=== PATIENT | male | born 1955 | race Caucasian/White ===

== ENCOUNTER → 2016-11-03 | Outpatient (CLI) | payer OTHER ==
[~2016-11-03] MED LIST: ATARAX PO; ATOR20TA PO; DIGO0.2566 PO; ESCI20TA PO; METO25TA62 PO; NOR7.5T PO; PROVENTIL; WARF5TAB PO
[2016-11-03 08:15] LABS: Urine Bilirubin Negative (Negative); Urine Color Yellow (Yellow); Urine Glucose Normal (Normal); Urine Ketone Negative (Negative); Urine Nitrite Negative (Negative); Urine RBC 1 /hpf (0 - 3); Urine Urobilinogen Normal (Negative); Urine pH 5.5 (5.0-8.0)
[2016-11-03 08:28] LABS: Albumin 3.8 g/dL (3.4-5.0); Bilirubin, Total 0.5 mg/dL (0.2-1.0); Calcium 8.7 mg/dL (8.5-10.1); Total Protein 7.7 g/dL (6.4-8.2)
[2016-11-03 08:32] LABS: Urine Blood 1+ /uL (Negative)
[2016-11-03 08:33] LABS: Basophils # (auto) 0.1 uL; Basophils % (auto) 1.7 % (0.0-2.0); Eosinophils # (auto) 0.4 uL; Eosinophils % (auto) 4.4 % (0.0-7.0); Hematocrit 50.5 % (41.0-53.0); Lymphocytes # (auto) 2.1 uL; Lymphocytes % (auto) 24.7 % (10.0-50.0); Mean Corpuscular Hemoglobin 30.4 pg (28.0-32.0); Mean Corpuscular Hgb Conc. 31.6 g/dL (32.0-36.0); Mean Corpuscular Volume 96.2 fL (80.0-100.0); Mean Platelet Volume 7.2 fL (7.4-10.4); Monocytes # (auto) 0.6 uL; Monocytes % (auto) 6.8 % (0.0-12.0); Neutrophils # (auto) 5.2 uL; Neutrophils % (auto) 62.4 % (37.0-80.0); Platelet Count (auto) 364 10^3/uL (140-450); Red Cell Distribution Width 14.1 % (11.6-16.0); White Blood Cell 8.3 10^3/uL (4.4-10.8)
== END | disposition home or self-care (01) ==
LOC: LAB 06:51
PROVIDERS: ATTEND Internal Medicine
DX: I10 Essential (primary) hypertension (principal); J45.909 Unspecified asthma, uncomplicated; M54.5 Low back pain
CPT/HCPCS: 36415; 80053; 80061; 81001; 84443; 85025; 85652; 86200; 86803

== ENCOUNTER → 2017-04-17 | Outpatient (CLI) | payer OTHER ==
[~2017-04-17] MED LIST changes: +ALBUTEROL SULF 2.5 MG/0.5ML(0.5%) NEB SOLN ONE
== END | disposition home or self-care (01) ==
LOC: PF 07:52
PROVIDERS: ATTEND Internal Medicine
DX: J44.9 Chronic obstructive pulmonary disease, unspecified (principal)
CPT/HCPCS: 94060; 94640

== ENCOUNTER → 2017-06-05 | Outpatient (CLI) | payer OTHER ==
[~2017-06-05] MED LIST changes: -ALBUTEROL SULF 2.5 MG/0.5ML(0.5%) NEB SOLN ONE
== END | disposition home or self-care (01) ==
LOC: LAB 09:15
PROVIDERS: ATTEND Internal Medicine
DX: R05 Cough (principal)
CPT/HCPCS: 87070; 87205

== ENCOUNTER → 2017-10-27 | Outpatient (CLI) | payer OTHER ==
[2017-10-27 09:03] LABS: Basophils # (auto) 0.1 uL; Basophils % (auto) 0.7 % (0.0-2.0); Eosinophils # (auto) 0.3 uL; Eosinophils % (auto) 3.4 % (0.0-7.0); Hematocrit 50.1 % (41.0-53.0); Hemoglobin 16.4 g/dL (13.5-17.5); Lymphocytes # (auto) 1.7 uL; Lymphocytes % (auto) 19.3 % (10.0-50.0); Mean Corpuscular Hemoglobin 31.7 pg (28.0-32.0); Mean Corpuscular Hgb Conc. 32.7 g/dL (32.0-36.0); Mean Corpuscular Volume 97.1 fL (80.0-100.0); Monocytes # (auto) 0.8 uL; Monocytes % (auto) 8.8 % (0.0-12.0); Neutrophils # (auto) 6.1 uL; Neutrophils % (auto) 67.8 % (37.0-80.0); Platelet Count (auto) 335 10^3/uL (140-450); Red Blood Cells 5.16 10^6/uL (4.5-5.90); Red Cell Distribution Width 14.7 % (11.8-14.3)
[2017-10-27 10:25] LABS: Albumin 3.8 g/dL (3.4-5.0); BUN/Creatinine Ratio 22.7; Bilirubin, Total 0.6 mg/dL (0.2-1.0); Calcium 9.1 mg/dL (8.5-10.1); Potassium 4.4 mmol/L (3.5-5.1)
== END | disposition home or self-care (01) ==
LOC: LAB 08:28
PROVIDERS: ATTEND Physician Assistant
DX: I10 Essential (primary) hypertension (principal); J44.9 Chronic obstructive pulmonary disease, unspecified; M19.90 Unspecified osteoarthritis, unspecified site; M05.741 Rheumatoid arthritis with rheumatoid factor of right hand without organ or systems involvement; Z86.79 Personal history of other diseases of the circulatory system
CPT/HCPCS: 36415; 80053; 80061; 85025

== ENCOUNTER → 2018-12-09 | Outpatient (CLI) | payer OTHER | END | disposition home or self-care (01) | LOC: XYW 08:27 | PROVIDERS: ATTEND Internal Medicine Cardiovascular Disease | DX: I48.0 Paroxysmal atrial fibrillation (principal); I10 Essential (primary) hypertension | CPT/HCPCS: 93306 ==

== ENCOUNTER 2018-12-16 07:07 | Emergency (ER) | payer OTHER ==
[~2018-12-16] VITALS: Ht 188 cm; Wt 75.7 kg
[2018-12-16] MEDS ORDERED: NITROGLYCERIN 0.4 MG SL TAB SL ONE (07:30)
[2018-12-16] MEDS ORDERED: ASPirin 81 mg TAB PO ONE (07:30)
[2018-12-16 07:44] LABS: Basophils # (auto) 0.1 uL; Basophils % (auto) 1.1 % (0.0-2.0); Eosinophils # (auto) 0.3 uL; Eosinophils % (auto) 3.5 % (0.0-7.0); Hematocrit 50.1 % (41.0-53.0); Hemoglobin 17.1 g/dL (13.5-17.5); Lymphocytes # (auto) 1.9 uL; Lymphocytes % (auto) 25.8 % (10.0-50.0); Mean Corpuscular Hemoglobin 31.9 pg (28.0-32.0); Mean Corpuscular Hgb Conc. 34.1 g/dL (32.0-36.0); Mean Corpuscular Volume 93.7 fL (80.0-100.0); Monocytes # (auto) 0.5 uL; Monocytes % (auto) 6.9 % (0.0-12.0); Neutrophils # (auto) 4.6 uL; Neutrophils % (auto) 62.7 % (37.0-80.0); Nucleated Red Blood Cells % 0.1 %; Platelet Count (auto) 323 10^3/uL (140-450); Red Blood Cells 5.35 10^6/uL (4.5-5.90); Red Cell Distribution Width 13.7 % (11.8-14.3); White Blood Cell 7.4 10^3/uL (4.4-10.8)
[2018-12-16 07:59] LABS: INR 0.93 (0.9-1.15)
[2018-12-16 08:04] LABS: Alanine Aminotransferase 12 U/L (16-61); Albumin 3.9 g/dL (3.4-5.0); Anion Gap 4 (5-15); Aspartate Aminotransferase 22 U/L (15-37); BUN/Creatinine Ratio 26.4; Blood Urea Nitrogen 24 mg/dL (7-18); Calcium 8.7 mg/dL (8.5-10.1); Carbon Dioxide 28 mmol/L (21-32); Chloride 106 mmol/L (98-107); GFR African American 108 mL/min; GFR Non-African American 89 mL/min; Glucose 95 mg/dL (74-106); Magnesium 2.3 mg/dL (1.6-2.6); Potassium 4.2 mmol/L (3.5-5.1); Sodium 138 mmol/L (136-145)
[2018-12-16 08:09] LABS: Alkaline Phosphatase 107 U/L (45-117); Bilirubin, Total 0.5 mg/dL (0.2-1.0); Total Protein 8.4 g/dL (6.4-8.2)
[2018-12-16 11:37] VITALS: BP 107/69
[2018-12-16 11:37] LABS: Urine Bacteria NONE SEEN /hpf (None Seen); Urine Blood TRACE /uL (Negative); Urine Mucus FEW (None Seen); Urine Specific Gravity 1.022 (1.001-1.035); Urine WBC <1 /hpf (0 - 3)
== END 2018-12-16 12:04 | disposition home or self-care (01) ==
LOC: ER 07:07
DX: R07.89 Other chest pain (principal); E78.5 Hyperlipidemia, unspecified; I10 Essential (primary) hypertension; J45.909 Unspecified asthma, uncomplicated; F17.210 Nicotine dependence, cigarettes, uncomplicated; F12.10 Cannabis abuse, uncomplicated; Z88.0 Allergy status to penicillin; Z88.5 Allergy status to narcotic agent
CPT/HCPCS: 36415; 71046; 80053; 81001; 83735; 83880; 84443; 84484; 85025; 85610; 85730; 93005

== ENCOUNTER → 2019-08-16 | Outpatient (CLI) | payer OTHER ==
[2019-08-16 11:08] LABS: Basophils # (auto) 0 uL; Basophils % (auto) 0.6 % (0.0-2.0); Eosinophils # (auto) 0.3 uL; Eosinophils % (auto) 4.1 % (0.0-7.0); Hematocrit 42.7 % (41.0-53.0); Hemoglobin 14.1 g/dL (13.5-17.5); Lymphocytes # (auto) 1.5 uL; Mean Corpuscular Hemoglobin 31.5 pg (28.0-32.0); Mean Corpuscular Hgb Conc. 32.9 g/dL (32.0-36.0); Mean Corpuscular Volume 95.6 fL (80.0-100.0); Monocytes # (auto) 0.6 uL; Monocytes % (auto) 8.7 % (0.0-12.0); Neutrophils # (auto) 4.1 uL; Neutrophils % (auto) 63.6 % (37.0-80.0); Platelet Count (auto) 257 10^3/uL (140-450); Red Blood Cells 4.46 10^6/uL (4.5-5.90); Red Cell Distribution Width 14.1 % (11.8-14.3); White Blood Cell 6.4 10^3/uL (4.4-10.8)
[2019-08-16 11:57] LABS: Albumin 3.5 g/dL (3.4-5.0); Calcium 8.8 mg/dL (8.5-10.1); Potassium 3.9 mmol/L (3.5-5.1)
[2019-08-16 12:03] LABS: BUN/Creatinine Ratio 27.1; Bilirubin, Total 0.8 mg/dL (0.2-1.0); Total Protein 6.8 g/dL (6.4-8.2)
== END | disposition home or self-care (01) ==
LOC: LAB 10:52
PROVIDERS: ATTEND Physician Assistant
DX: Z00.00 Encounter for general adult medical examination without abnormal findings (principal); Z12.5 Encounter for screening for malignant neoplasm of prostate; I10 Essential (primary) hypertension; J44.9 Chronic obstructive pulmonary disease, unspecified; I48.20 Chronic atrial fibrillation, unspecified; N52.9 Male erectile dysfunction, unspecified; F17.210 Nicotine dependence, cigarettes, uncomplicated; E78.5 Hyperlipidemia, unspecified; Z98.890 Other specified postprocedural states
CPT/HCPCS: 36415; 80053; 80061; 84153; 84403; 85025

== ENCOUNTER → 2019-09-08 | Outpatient (CLI) | payer OTHER ==
[~2019-09-08] VITALS: Ht 188 cm; Wt 76.7 kg
[~2019-09-08] MED LIST changes: +ADENOSINE 64 MG in GIVE UN-DILUTED 0 ML IV STA; -METO25TA62 PO; +METO25TA93 PO
== END | disposition home or self-care (01) ==
LOC: XY 08:54
PROVIDERS: ATTEND Internal Medicine
DX: I48.91 Unspecified atrial fibrillation (principal); I10 Essential (primary) hypertension; R07.9 Chest pain, unspecified
CPT/HCPCS: 78452; 93017; A9500; J0153

== ENCOUNTER → 2020-08-13 | Outpatient (CLI) | payer OTHER ==
[~2020-08-13] MED LIST changes: -ADENOSINE 64 MG in GIVE UN-DILUTED 0 ML IV STA
[2020-08-13 08:59] LABS: Basophils # (auto) 0.1 10 ^3/uL (0-0.2); Basophils % (auto) 0.6 % (0.0-2.0); Eosinophils # (auto) 0.2 10 ^3/uL (0-0.8); Eosinophils % (auto) 2.2 % (0.0-7.0); Hematocrit 50.3 % (41.0-53.0); Hemoglobin 16.5 g/dL (13.5-17.5); Lymphocytes # (auto) 1.3 10 ^3/uL (0.4-5.4); Lymphocytes % (auto) 13.4 % (10.0-50.0); Mean Corpuscular Hemoglobin 31.3 pg (28.0-32.0); Mean Corpuscular Hgb Conc. 32.8 g/dL (32.0-36.0); Mean Corpuscular Volume 95.5 fL (80.0-100.0); Monocytes # (auto) 0.6 10 ^3/uL (0-1.3); Monocytes % (auto) 6.2 % (0.0-12.0); Neutrophils # (auto) 7.6 10 ^3/uL (1.6-8.6); Neutrophils % (auto) 77.6 % (37.0-80.0); Platelet Count (auto) 332 10^3/uL (140-450); Red Blood Cells 5.27 10^6/uL (4.5-5.90); Red Cell Distribution Width 13.8 % (11.8-14.3); White Blood Cell 9.7 10^3/uL (4.4-10.8)
[2020-08-13 10:14] LABS: Albumin 3.7 g/dL (3.4-5.0); Calcium 9.3 mg/dL (8.5-10.1); Potassium 3.8 mmol/L (3.5-5.1)
[2020-08-13 10:21] LABS: BUN/Creatinine Ratio 23.5; Bilirubin, Total 0.6 mg/dL (0.2-1.0); Total Protein 7.8 g/dL (6.4-8.2)
== END | disposition home or self-care (01) ==
LOC: LAB 08:43
PROVIDERS: ATTEND Physician Assistant
DX: I10 Essential (primary) hypertension (principal); I48.20 Chronic atrial fibrillation, unspecified; R35.1 Nocturia; J44.9 Chronic obstructive pulmonary disease, unspecified; F17.200 Nicotine dependence, unspecified, uncomplicated; M05.749 Rheumatoid arthritis with rheumatoid factor of unspecified hand without organ or systems involvement
CPT/HCPCS: 36415; 80053; 80061; 84153; 85025

== ENCOUNTER 2020-09-18 15:51 | Emergency (ER) | payer OTHER ==
[~2020-09-18] VITALS: Ht 188 cm; Wt 73.5 kg
[2020-09-18 16:17] VITALS: BP 131/78
== END 2020-09-18 18:33 | disposition home or self-care (01) ==
LOC: ER 15:51
DX: U07.1 COVID-19 (principal); J18.9 Pneumonia, unspecified organism
CPT/HCPCS: 36415; 71045; 87426

== ENCOUNTER 2021-01-30 10:56 | Emergency (ER) | payer OTHER ==
[~2021-01-30] VITALS: Ht 188 cm; Wt 76.2 kg
[2021-01-30 11:31] LABS: Basophils # (auto) 0 10 ^3/uL (0-0.2); Basophils % (auto) 0.5 % (0.0-2.0); Eosinophils # (auto) 0.1 10 ^3/uL (0-0.8); Eosinophils % (auto) 1.5 % (0.0-7.0); Hematocrit 50.6 % (41.0-53.0); Hemoglobin 16.8 g/dL (13.5-17.5); Lymphocytes # (auto) 1.7 10 ^3/uL (0.4-5.4); Lymphocytes % (auto) 19.3 % (10.0-50.0); Mean Corpuscular Hemoglobin 31.6 pg (28.0-32.0); Mean Corpuscular Hgb Conc. 33.2 g/dL (32.0-36.0); Mean Corpuscular Volume 95.2 fL (80.0-100.0); Monocytes # (auto) 0.5 10 ^3/uL (0-1.3); Monocytes % (auto) 5.8 % (0.0-12.0); Neutrophils # (auto) 6.6 10 ^3/uL (1.6-8.6); Neutrophils % (auto) 72.9 % (37.0-80.0); Nucleated Red Blood Cells % 0.1 %; Platelet Count (auto) 328 10^3/uL (140-450); Red Blood Cells 5.31 10^6/uL (4.5-5.90); Red Cell Distribution Width 13.8 % (11.8-14.3)
[2021-01-30 11:52] LABS: Albumin 3.8 g/dL (3.4-5.0); Anion Gap 6 (5-15); Blood Urea Nitrogen 24 mg/dL (7-18); Carbon Dioxide 27 mmol/L (21-32); Chloride 106 mmol/L (98-107); Glucose 103 mg/dL (74-106); Lipase 79 U/L (73-393); Potassium 4.3 mmol/L (3.5-5.1); Sodium 139 mmol/L (136-145)
[2021-01-30 11:57] LABS: Alanine Aminotransferase 10 U/L (16-61); Alkaline Phosphatase 102 U/L (45-117); Aspartate Aminotransferase 16 U/L (15-37); Bilirubin, Total 0.5 mg/dL (0.2-1.0); GFR African American 134 mL/min; GFR Non-African American 111 mL/min; Total Protein 8.1 g/dL (6.4-8.2)
[2021-01-30 14:26] LABS: Urine Bacteria NONE SEEN /hpf (None Seen); Urine Blood 1+ /uL (Negative); Urine Mucus FEW (None Seen); Urine Specific Gravity 1.022 (1.001-1.035); Urine WBC 1 /hpf (0 - 3)
[2021-01-30 14:57] LABS: INR 1.02 (0.9-1.15); Partial Thromboplastin Time 28.2 sec (23.0-31.2)
[2021-01-30] MEDS ORDERED: cefTRIAXone 1GM/50ML D5W 50 ML IV ONE (15:30)
[2021-01-30] MEDS: ONDANSETRON HCL 4 MG/2 ML VIAL IV ONE ×2 (15:45→15:53)
[2021-01-30 17:07] VITALS: BP 115/77
== END 2021-01-30 17:59 | disposition home or self-care (01) ==
LOC: ER 10:56
DX: J42 Unspecified chronic bronchitis (principal); K57.90 Diverticulosis of intestine, part unspecified, without perforation or abscess without bleeding; Z20.822 Contact with and (suspected) exposure to COVID-19
CPT/HCPCS: 36415; 71045; 74176; 80053; 81001; 83690; 83735; 84484; 85025; 85610; 85730; 87426; 93005; 96365; 99285; J0696; J2405

== ENCOUNTER → 2021-03-11 | Outpatient (CLI) | payer OTHER ==
[2021-03-11 10:22] LABS: Basophils # (auto) 0.1 10 ^3/uL (0-0.2); Basophils % (auto) 0.9 % (0.0-2.0); Eosinophils # (auto) 0.2 10 ^3/uL (0-0.8); Eosinophils % (auto) 3.1 % (0.0-7.0); Hematocrit 42.9 % (41.0-53.0); Hemoglobin 14.8 g/dL (13.5-17.5); Lymphocytes # (auto) 1.5 10 ^3/uL (0.4-5.4); Mean Corpuscular Hemoglobin 32.3 pg (28.0-32.0); Mean Corpuscular Hgb Conc. 34.5 g/dL (32.0-36.0); Mean Corpuscular Volume 93.6 fL (80.0-100.0); Monocytes # (auto) 0.5 10 ^3/uL (0-1.3); Monocytes % (auto) 6.8 % (0.0-12.0); Neutrophils # (auto) 4.9 10 ^3/uL (1.6-8.6); Neutrophils % (auto) 68.2 % (37.0-80.0); Platelet Count (auto) 282 10^3/uL (140-450); Red Blood Cells 4.58 10^6/uL (4.5-5.90); Red Cell Distribution Width 14.1 % (11.8-14.3); White Blood Cell 7.1 10^3/uL (4.4-10.8)
[2021-03-11 10:50] LABS: Potassium 4.3 mmol/L (3.5-5.1)
[2021-03-11 11:02] LABS: Albumin 3.4 g/dL (3.4-5.0); BUN/Creatinine Ratio 32.3; Bilirubin, Total 0.4 mg/dL (0.2-1.0); Calcium 8.7 mg/dL (8.5-10.1)
== END | disposition home or self-care (01) ==
LOC: LAB 10:03
PROVIDERS: ATTEND Nurse Practitioner Family
DX: I10 Essential (primary) hypertension (principal); J44.9 Chronic obstructive pulmonary disease, unspecified; I48.20 Chronic atrial fibrillation, unspecified; I70.0 Atherosclerosis of aorta; R35.1 Nocturia
CPT/HCPCS: 36415; 80053; 80061; 84153; 85025

== ENCOUNTER → 2022-05-20 | Outpatient (CLI) | payer OTHER ==
[2022-05-20 10:33] LABS: Basophils # (auto) 0.1 10 ^3/uL (0-0.2); Basophils % (auto) 1.1 % (0.0-2.0); Eosinophils # (auto) 0.3 10 ^3/uL (0-0.8); Hematocrit 44.2 % (41.0-53.0); Hemoglobin 14.4 g/dL (13.5-17.5); Lymphocytes # (auto) 1.7 10 ^3/uL (0.4-5.4); Lymphocytes % (auto) 25.5 % (10.0-50.0); Mean Corpuscular Hemoglobin 30.3 pg (28.0-32.0); Mean Corpuscular Hgb Conc. 32.6 g/dL (32.0-36.0); Mean Corpuscular Volume 92.8 fL (80.0-100.0); Monocytes # (auto) 0.4 10 ^3/uL (0-1.3); Monocytes % (auto) 6.3 % (0.0-12.0); Neutrophils % (auto) 62.1 % (37.0-80.0); Red Blood Cells 4.76 10^6/uL (4.5-5.90); Red Cell Distribution Width 14.3 % (11.8-14.3); White Blood Cell 6.5 10^3/uL (4.4-10.8)
[2022-05-20 10:57] LABS: Calcium 8.8 mg/dL (8.5-10.1); Potassium 4.6 mmol/L (3.5-5.1)
[2022-05-20 11:03] LABS: BUN/Creatinine Ratio 21.9; Bilirubin, Total 0.3 mg/dL (0.2-1.0); Total Protein 6.6 g/dL (6.4-8.2)
== END | disposition home or self-care (01) ==
LOC: LAB 09:53
PROVIDERS: ATTEND Nurse Practitioner Family
DX: M05.741 Rheumatoid arthritis with rheumatoid factor of right hand without organ or systems involvement (principal); R35.1 Nocturia; E78.5 Hyperlipidemia, unspecified; I10 Essential (primary) hypertension; I48.0 Paroxysmal atrial fibrillation
CPT/HCPCS: 36415; 80053; 80061; 84153; 85025; 86431

== ENCOUNTER → 2022-08-13 | Outpatient (CLI) | payer OTHER ==
[2022-08-13 14:47] LABS: Basophils # (auto) 0.1 10 ^3/uL (0-0.2); Basophils % (auto) 0.8 % (0.0-2.0); Eosinophils # (auto) 0.2 10 ^3/uL (0-0.8); Eosinophils % (auto) 2.4 % (0.0-7.0); Hematocrit 46.3 % (41.0-53.0); Hemoglobin 15.2 g/dL (13.5-17.5); Lymphocytes # (auto) 2.5 10 ^3/uL (0.4-5.4); Lymphocytes % (auto) 29.9 % (10.0-50.0); Mean Corpuscular Hemoglobin 30.6 pg (28.0-32.0); Mean Corpuscular Hgb Conc. 32.9 g/dL (32.0-36.0); Monocytes # (auto) 0.6 10 ^3/uL (0-1.3); Monocytes % (auto) 7.4 % (0.0-12.0); Neutrophils % (auto) 59.5 % (37.0-80.0); Red Blood Cells 4.98 10^6/uL (4.5-5.90); Red Cell Distribution Width 13.8 % (11.8-14.3); White Blood Cell 8.4 10^3/uL (4.4-10.8)
[2022-08-13 15:15] LABS: Albumin 3.5 g/dL (3.4-5.0); Calcium 8.6 mg/dL (8.5-10.1); Potassium 3.9 mmol/L (3.5-5.1)
[2022-08-13 15:18] LABS: BUN/Creatinine Ratio 31.9; Bilirubin, Total 0.5 mg/dL (0.2-1.0); CRP High Sensitivity 0.17 mg/dL (< 0.3); Total Protein 7.4 g/dL (6.4-8.2)
== END | disposition home or self-care (01) ==
LOC: LAB 13:45
PROVIDERS: ATTEND Internal Medicine Rheumatology
DX: M05.79 Rheumatoid arthritis with rheumatoid factor of multiple sites without organ or systems involvement (principal); R53.83 Other fatigue; Z79.899 Other long term (current) drug therapy
CPT/HCPCS: 36415; 80053; 85025; 85652; 86141; 86704

== ENCOUNTER → 2022-08-19 | Outpatient (CLI) | payer OTHER ==
[2022-08-19 09:23] LABS: Albumin 3.5 g/dL (3.4-5.0); Bilirubin, Direct 0.1 mg/dL (0-0.2); Bilirubin, Total 0.6 mg/dL (0.2-1.0); Total Protein 7.1 g/dL (6.4-8.2)
== END | disposition home or self-care (01) ==
LOC: LAB 08:13
PROVIDERS: ATTEND Podiatrist
DX: B35.1 Tinea unguium (principal)
CPT/HCPCS: 36415; 80076

== ENCOUNTER → 2023-01-21 | Outpatient (CLI) | payer OTHER ==
[2023-01-21 08:55] LABS: Basophils # (auto) 0.1 10 ^3/uL (0-0.2); Eosinophils # (auto) 0.3 10 ^3/uL (0-0.8); Hematocrit 46.7 % (41.0-53.0); Hemoglobin 15.7 g/dL (13.5-17.5); Lymphocytes # (auto) 1.7 10 ^3/uL (0.4-5.4); Lymphocytes % (auto) 24.1 % (10.0-50.0); Mean Corpuscular Hemoglobin 30.7 pg (28.0-32.0); Mean Corpuscular Hgb Conc. 33.6 g/dL (32.0-36.0); Mean Corpuscular Volume 91.3 fL (80.0-100.0); Monocytes # (auto) 0.5 10 ^3/uL (0-1.3); Monocytes % (auto) 7.9 % (0.0-12.0); Neutrophils # (auto) 4.4 10 ^3/uL (1.6-8.6); Nucleated Red Blood Cells % 0.1 %; Red Blood Cells 5.11 10^6/uL (4.5-5.90); Red Cell Distribution Width 14.2 % (11.8-14.3); White Blood Cell 6.9 10^3/uL (4.4-10.8)
[2023-01-21 09:41] LABS: Albumin 3.4 g/dL (3.4-5.0); Potassium 3.6 mmol/L (3.5-5.1)
[2023-01-21 09:46] LABS: Bilirubin, Total 0.5 mg/dL (0.2-1.0); Total Protein 7.6 g/dL (6.4-8.2)
[2023-01-21 09:50] LABS: Free T4 (Free Thyroxine) 1.31 ng/dL (0.89-1.76); Prostate Specific Antigen 1.37 ng/mL (0.0-4.0)
== END | disposition home or self-care (01) ==
LOC: LAB 08:40
PROVIDERS: ATTEND Nurse Practitioner Family
DX: R53.83 Other fatigue (principal)
CPT/HCPCS: 36415; 80053; 80061; 84153; 84403; 84439; 84443; 85025

== ENCOUNTER 2023-07-23 12:43 | Emergency (ER) | payer OTHER, MEDICAID ==
[~2023-07-23] VITALS: Ht 190.5 cm; Wt 69.5 kg
[2023-07-23 13:49] LABS: Basophils # (auto) 0.1 10 ^3/uL (0-0.2); Basophils % (auto) 0.7 % (0.0-2.0); Eosinophils # (auto) 0.4 10 ^3/uL (0-0.8); Eosinophils % (auto) 4.6 % (0.0-7.0); Hematocrit 45.5 % (41.0-53.0); Hemoglobin 15.1 g/dL (13.5-17.5); Lymphocytes # (auto) 2.1 10 ^3/uL (0.4-5.4); Lymphocytes % (auto) 24.8 % (10.0-50.0); Mean Corpuscular Hgb Conc. 33.2 g/dL (32.0-36.0); Mean Corpuscular Volume 93.4 fL (80.0-100.0); Monocytes # (auto) 0.6 10 ^3/uL (0-1.3); Monocytes % (auto) 7.3 % (0.0-12.0); Neutrophils # (auto) 5.4 10 ^3/uL (1.6-8.6); Neutrophils % (auto) 62.6 % (37.0-80.0); Red Blood Cells 4.87 10^6/uL (4.5-5.90); Red Cell Distribution Width 14.2 % (11.8-14.3); White Blood Cell 8.7 10^3/uL (4.4-10.8)
[2023-07-23 14:06] LABS: Alanine Aminotransferase 15 U/L (7-40); Albumin 4.3 g/dL (3.2-4.8); Alkaline Phosphatase 97 U/L (46-116); Anion Gap 8 (5-15); Aspartate Aminotransferase 38 U/L (13-40); BUN/Creatinine Ratio 34.4 (10.0-20.0); Bilirubin, Total 0.4 mg/dL (0.2-1.0); Blood Urea Nitrogen 21 mg/dL (9-23); Calcium 9.1 mg/dL (8.5-10.1); Carbon Dioxide 26 mmol/L (20-30); Chloride 107 mmol/L (98-107); Glucose 105 mg/dL (74-106); Potassium 4.2 mmol/L (3.5-5.1); Sodium 141 mmol/L (136-145); Total Protein 7.2 g/dL (5.7-8.2)
[2023-07-23] MEDS ORDERED: IOHEXOL 300 MG/ML 100ML BOTTLE IJ ONE (14:16)
[2023-07-23] MEDS ORDERED: MECL25CH85 PO ×3 (15:13→20:48)
[2023-07-23 17:21] VITALS: BP 118/64; TEMP 97.8
[2023-07-23 17:24] VITALS: PULSE 67; RESP 18; O2SAT 95
== END 2023-07-23 17:28 | disposition home or self-care (01) ==
LOC: ER 12:43
DX: R42 Dizziness and giddiness (principal); I48.91 Unspecified atrial fibrillation; J45.909 Unspecified asthma, uncomplicated; E78.5 Hyperlipidemia, unspecified; I10 Essential (primary) hypertension; F17.210 Nicotine dependence, cigarettes, uncomplicated; Z98.890 Other specified postprocedural states; Z88.0 Allergy status to penicillin; Z88.8 Allergy status to other drugs, medicaments and biological substances; Z79.899 Other long term (current) drug therapy
CPT/HCPCS: 36415; 70450; 71046; 71260; 74177; 80053; 83735; 83880; 84484; 85025; 85379; 93005; 99285; Q9967

== ENCOUNTER → 2023-09-10 | Outpatient (CLI) | payer OTHER ==
[~2023-09-10] VITALS: Ht 188 cm; Wt 69.9 kg
[~2023-09-10] MED LIST changes: +MECL25CH85 PO; +REGADENOSON 0.4 MG/5 ML SYRG IV ONE
== END | disposition home or self-care (01) ==
LOC: XYW 11:30
PROVIDERS: ATTEND Student in an Organized Health Care Education/Training Program
DX: Z01.810 Encounter for preprocedural cardiovascular examination (principal); R06.02 Shortness of breath; I48.0 Paroxysmal atrial fibrillation; J44.9 Chronic obstructive pulmonary disease, unspecified; G25.0 Essential tremor
CPT/HCPCS: 78452; 93017; A9500; J2785

== ENCOUNTER → 2024-03-17 | Outpatient (CLI) | payer OTHER ==
[~2024-03-17] MED LIST changes: -REGADENOSON 0.4 MG/5 ML SYRG IV ONE
[2024-03-17 09:39] LABS: Basophils # (auto) 0.1 10 ^3/uL (0-0.2); Basophils % (auto) 1.1 % (0.0-2.0); Eosinophils # (auto) 0.4 10 ^3/uL (0-0.8); Eosinophils % (auto) 5.2 % (0.0-7.0); Hematocrit 44.7 % (41.0-53.0); Hemoglobin 15.4 g/dL (13.5-17.5); Lymphocytes # (auto) 1.8 10 ^3/uL (0.4-5.4); Lymphocytes % (auto) 23.7 % (10.0-50.0); Mean Corpuscular Hemoglobin 32.5 pg (28.0-32.0); Mean Corpuscular Hgb Conc. 34.5 g/dL (32.0-36.0); Mean Corpuscular Volume 94.3 fL (80.0-100.0); Monocytes # (auto) 0.5 10 ^3/uL (0-1.3); Monocytes % (auto) 6.5 % (0.0-12.0); Neutrophils # (auto) 4.8 10 ^3/uL (1.6-8.6); Neutrophils % (auto) 63.5 % (37.0-80.0); Red Blood Cells 4.74 10^6/uL (4.5-5.90); Red Cell Distribution Width 13.8 % (11.8-14.3); White Blood Cell 7.5 10^3/uL (4.4-10.8)
[2024-03-17 10:03] LABS: Alkaline Phosphatase 94 U/L (46-116); Anion Gap 2 (5-15); Aspartate Aminotransferase 19 U/L (13-40); BUN/Creatinine Ratio 23.3 (10.0-20.0); Blood Urea Nitrogen 17 mg/dL (9-23); Calcium 9.4 mg/dL (8.5-10.1); Carbon Dioxide 29 mmol/L (20-30); Chloride 110 mmol/L (98-107); Glucose 97 mg/dL (74-106); LDL Cholesterol 49 mg/dL (< 100); Potassium 4.2 mmol/L (3.5-5.1); Sodium 141 mmol/L (136-145); Triglycerides 45 mg/dL (< 150)
[2024-03-17 10:04] LABS: Albumin 4.3 g/dL (3.2-4.8); Bilirubin, Total 0.5 mg/dL (0.2-1.0); Cholesterol 122 mg/dL (< 200); HDL Cholesterol 60 mg/dL (40-59)
[2024-03-17 10:33] LABS: Prostate Specific Antigen 1.37 ng/mL (0.0-4.0)
[2024-03-17 10:35] LABS: Alanine Aminotransferase < 9 U/L (7-40)
[2024-03-17 10:39] LABS: Free T4 (Free Thyroxine) 1.11 ng/dL (0.89-1.76)
== END | disposition home or self-care (01) ==
LOC: LAB 09:22
PROVIDERS: ATTEND Nurse Practitioner Family
DX: I10 Essential (primary) hypertension (principal); R35.1 Nocturia; J44.9 Chronic obstructive pulmonary disease, unspecified
CPT/HCPCS: 36415; 80053; 80061; 84153; 84439; 84443; 85025

== ENCOUNTER → 2024-04-11 | Outpatient (CLI) | payer OTHER ==
[~2024-04-11] MED LIST changes: +CIPR-173 PO; +PHEN-922 PO
== END | disposition home or self-care (01) ==
LOC: LAB 12:28
PROVIDERS: ATTEND Nurse Practitioner Family
DX: N39.0 Urinary tract infection, site not specified (principal)
CPT/HCPCS: 87086; 87088; 87186

== ENCOUNTER 2024-04-13 08:50 | Emergency (ER) | payer OTHER ==
[~2024-04-13] VITALS: Ht 188 cm; Wt 66.8 kg
[~2024-04-13 08:50] MED LIST changes: +ATOR-507 PO; -ESCI20TA PO; +HYDR-4902 PO; -PHEN-922 PO
[2024-04-13 09:43] VITALS: O2SAT 93
[2024-04-13 09:51] LABS: Urine Bacteria None Seen /hpf (None Seen)
[2024-04-13 09:58] LABS: Urine Blood 3+ /uL (Negative); Urine Clarity Clear (Clear); Urine Color Light-Yellow (Yellow); Urine Hyaline Cast FEW /lpf (0 - 2); Urine Mucus FEW (None Seen); Urine Protein, UAD Negative (Negative); Urine Specific Gravity 1.013 (1.001-1.035); Urine Urobilinogen Normal (Negative); Urine WBC 27 /hpf (0 - 3)
[2024-04-13 10:21] LABS: Basophils # (auto) 0 10 ^3/uL (0-0.2); Basophils % (auto) 0.1 % (0.0-2.0); Eosinophils # (auto) 0 10 ^3/uL (0-0.8); Hemoglobin 13.7 g/dL (13.5-17.5)
[2024-04-13 10:22] LABS: Hematocrit 39.6 % (41.0-53.0); Lymphocytes % (auto) 5.1 % (10.0-50.0); Mean Corpuscular Hemoglobin 31.9 pg (28.0-32.0); Mean Corpuscular Hgb Conc. 34.6 g/dL (32.0-36.0); Mean Corpuscular Volume 92.3 fL (80.0-100.0); Monocytes % (auto) 5.1 % (0.0-12.0); Neutrophils % (auto) 89.7 % (37.0-80.0); Red Cell Distribution Width 13.5 % (11.8-14.3)
[2024-04-13 10:51] LABS: Alkaline Phosphatase 93 U/L (46-116); Anion Gap 8 (5-15); Aspartate Aminotransferase 15 U/L (13-40); BUN/Creatinine Ratio 25.4 (10.0-20.0); Bilirubin, Total 0.8 mg/dL (0.2-1.0); Blood Urea Nitrogen 17 mg/dL (9-23); Calcium 9.6 mg/dL (8.7-10.4); Carbon Dioxide 28 mmol/L (20-30); Chloride 102 mmol/L (98-107); Glucose 110 mg/dL (74-106); Lipase 22 U/L (12-53); Magnesium 1.8 mg/dL (1.6-2.6); Potassium 3.9 mmol/L (3.5-5.1); Sodium 138 mmol/L (136-145); Total Protein 6.9 g/dL (5.7-8.2)
[2024-04-13 11:00] LABS: Alanine Aminotransferase < 9 U/L (7-40)
[2024-04-13] MEDS: SODIUM CHLORIDE 0.9% 1,000 ML IV ONE (11:06)
[2024-04-13] MEDS: TAMSULOSIN HYDROCHLORIDE 0.4 MG CAP PO ONE (11:06)
[2024-04-13] MEDS ORDERED: PHEN-1045 PO (11:24)
[2024-04-13] MEDS: HYDROcodone-ACET 5/325MG TAB PO ONE (12:48)
[2024-04-13] MEDS: cefTRIAXone 1GM/50ML D5W 50 ML IV ONE (13:26)
[2024-04-13] MEDS ORDERED: PHEN-922 PO (13:29)
[2024-04-13] MEDS ORDERED: CIPR-173 PO (13:29)
[2024-04-13 15:04] VITALS: BP 121/71; PULSE 78; RESP 16; O2SAT 95
[2024-04-20] MEDS ORDERED: ESCI20TA PO (00:30)
[2024-04-20] MEDS ORDERED: FLUC150T47 PO (11:24)
== END 2024-04-13 15:08 | disposition home or self-care (01) ==
LOC: ER 08:50
DX: N30.90 Cystitis, unspecified without hematuria (principal); N20.1 Calculus of ureter; J45.909 Unspecified asthma, uncomplicated; E78.5 Hyperlipidemia, unspecified; I10 Essential (primary) hypertension; Z88.0 Allergy status to penicillin; Z88.8 Allergy status to other drugs, medicaments and biological substances; Z79.01 Long term (current) use of anticoagulants; Z79.899 Other long term (current) drug therapy; Z98.890 Other specified postprocedural states
CPT/HCPCS: 36415; 76870; 80053; 81001; 82360; 83690; 83735; 85025; 87086

== ENCOUNTER 2024-04-14 11:30 | Inpatient (IN) | payer OTHER ==
[~2024-04-14] VITALS: Ht 188 cm; Wt 67.9 kg
[2024-04-14] MEDS: SODIUM CHLORIDE 0.9% 1,000 ML IV SCH (05:30)
[~2024-04-14 11:30] MED LIST changes: -ATOR-507 PO; +ESCI20TA PO; -HYDR-4902 PO; +PHEN-922 PO
[2024-04-14 12:21] LABS: Urine Bacteria None Seen /hpf (None Seen)
[2024-04-14 12:32] LABS: Urine Blood Negative /uL (Negative); Urine Clarity Clear (Clear); Urine Color Dark-Orange (Yellow); Urine Mucus FEW (None Seen); Urine Protein, UAD Negative (Negative); Urine Specific Gravity 1.009 (1.001-1.035); Urine Urobilinogen 2 mg/dL (Negative); Urine WBC 2 /hpf (0 - 3)
[2024-04-14 12:48] LABS: Basophils # (auto) 0.1 10 ^3/uL (0-0.2); Eosinophils # (auto) 0.1 10 ^3/uL (0-0.8); Eosinophils % (auto) 0.4 % (0.0-7.0); Hemoglobin 13.3 g/dL (13.5-17.5); Mean Corpuscular Volume 91.9 fL (80.0-100.0); White Blood Cell 13.9 10^3/uL (4.4-10.8)
[2024-04-14 12:50] LABS: Basophils % (auto) 0.9 % (0.0-2.0); Lymphocytes # (auto) 1.6 10 ^3/uL (0.4-5.4); Lymphocytes % (auto) 11.4 % (10.0-50.0); Mean Corpuscular Hemoglobin 31.3 pg (28.0-32.0); Mean Corpuscular Hgb Conc. 34.1 g/dL (32.0-36.0); Monocytes % (auto) 7.4 % (0.0-12.0); Neutrophils # (auto) 11.1 10 ^3/uL (1.6-8.6); Neutrophils % (auto) 79.9 % (37.0-80.0); Red Blood Cells 4.24 10^6/uL (4.5-5.90); Red Cell Distribution Width 13.3 % (11.8-14.3)
[2024-04-14 13:07] LABS: Alkaline Phosphatase 100 U/L (46-116); Anion Gap 9 (5-15); Aspartate Aminotransferase 28 U/L (13-40); BUN/Creatinine Ratio 23.3 (10.0-20.0); Blood Urea Nitrogen 14 mg/dL (9-23); Calcium 9.3 mg/dL (8.5-10.1); Carbon Dioxide 25 mmol/L (20-30); Chloride 104 mmol/L (98-107); Glucose 94 mg/dL (74-106); LDL Cholesterol 57 mg/dL (< 100); Potassium 2.8 mmol/L (3.5-5.1); Sodium 138 mmol/L (136-145); Triglycerides 104 mg/dL (< 150)
[2024-04-14 13:08] LABS: Bilirubin, Total 0.6 mg/dL (0.2-1.0); Cholesterol 121 mg/dL (< 200); HDL Cholesterol 41 mg/dL (40-59); Total Protein 6.7 g/dL (5.7-8.2)
[2024-04-14 13:11] LABS: Free T3 2.54 pg/mL (2.3-4.2); Free T4 (Free Thyroxine) 1.59 ng/dL (0.89-1.76)
[2024-04-14 13:13] LABS: Alanine Aminotransferase < 9 U/L (7-40)
[2024-04-14] MEDS: POTASSIUM EFFERVESENT TAB 25 MEQ GT ONE (14:33)
[2024-04-14] MEDS: MORPHINE SULFATE 4 MG/ML SYR/VIAL IV ONE (17:59)
[2024-04-14 19:42] VITALS: BP 139/80; PULSE 75; RESP 18; O2SAT 92
[2024-04-14 20:00] VITALS: PULSE 77; RESP 16; O2SAT 91
[2024-04-14 20:11] VITALS: PULSE 88; RESP 16; O2SAT 97
[2024-04-14 20:18] LABS: Magnesium 1.7 mg/dL (1.6-2.6)
[2024-04-14] MEDS: SODIUM CHLORIDE 0.9% 1,000 ML IV ONE (20:56)
[2024-04-14] MEDS: NICOTINE 14 MG/24HR TOPICAL PATCH TD ONE (21:00)
[2024-04-14 21:52] VITALS: BP_SYST 138; BP_DIAS 116; BP_DIAS 82; PULSE 76; RESP 18; RESP 20; TEMP 97.8; TEMP 98; O2SAT 92; O2SAT 98
[2024-04-14] MEDS: ATORVASTATIN 20 MG TAB PO SCH (21:58)
[2024-04-14] MEDS: MECLIZINE HCL 25 MG TAB PO SCH (21:59)
[2024-04-14] MEDS: METOPROLOL SUCCINATE XL 50 MG TAB PO SCH (21:59)
[2024-04-15] VITALS (9 sets, daily range): BP systolic 127–148; BP diastolic 75–87; PULSE 68–85; RESP 16–91; TEMP 98.2–98.5; O2SAT 20–98
[2024-04-15] MEDS: ACETAMINOPHEN 325 MG TAB PO PRN (04:03)
[2024-04-15 05:56] LABS: Basophils # (auto) 0.1 10 ^3/uL (0-0.2); Basophils % (auto) 0.4 % (0.0-2.0); Eosinophils # (auto) 0.2 10 ^3/uL (0-0.8); Eosinophils % (auto) 1.7 % (0.0-7.0); Hematocrit 36.6 % (41.0-53.0); Hemoglobin 12.6 g/dL (13.5-17.5); Lymphocytes # (auto) 1.2 10 ^3/uL (0.4-5.4); Lymphocytes % (auto) 9.9 % (10.0-50.0); Mean Corpuscular Hemoglobin 31.9 pg (28.0-32.0); Mean Corpuscular Hgb Conc. 34.6 g/dL (32.0-36.0); Mean Corpuscular Volume 92.3 fL (80.0-100.0); Monocytes % (auto) 8.2 % (0.0-12.0); Neutrophils # (auto) 9.8 10 ^3/uL (1.6-8.6); Neutrophils % (auto) 79.8 % (37.0-80.0); Red Blood Cells 3.96 10^6/uL (4.5-5.90); Red Cell Distribution Width 13.4 % (11.8-14.3); White Blood Cell 12.3 10^3/uL (4.4-10.8)
[2024-04-15 06:14] LABS: Alanine Aminotransferase < 9 U/L (7-40); Albumin 3.4 g/dL (3.2-4.8); Alkaline Phosphatase 82 U/L (46-116); Anion Gap 8 (5-15); Aspartate Aminotransferase 18 U/L (13-40); Bilirubin, Total 0.6 mg/dL (0.2-1.0); Blood Urea Nitrogen 7 mg/dL (9-23); Calcium 8.7 mg/dL (8.7-10.4); Carbon Dioxide 27 mmol/L (20-30); Chloride 107 mmol/L (98-107); Glucose 102 mg/dL (74-106); Potassium 2.9 mmol/L (3.5-5.1); Sodium 142 mmol/L (136-145); Total Protein 5.8 g/dL (5.7-8.2)
[2024-04-15] MEDS: ALBUTEROL SULF 2.5 MG/0.5ML(0.5%) NEB SOLN NEB PRN (07:36)
[2024-04-15 07:59] LABS: INR 1.09 (0.9-1.15); Partial Thromboplastin Time 28.9 SEC (24.5-34.5); Prothrombin Time 11.5 sec (9.3-11.8)
[2024-04-15 08:07] LABS: PSA Free 0.31 ng/mL; Prostate Specific Antigen 5.6 ng/mL (0.0-4.0)
[2024-04-15] MEDS: ONDANSETRON HCL 4 MG/2 ML VIAL IV PRN (09:56)
[2024-04-15] MEDS: NICOTINE 14 MG/24HR TOPICAL PATCH TD SCH (11:11)
[2024-04-15] MEDS: ENOXAPARIN SOD 40 MG/0.4 ML SYRINGE SC SCH (11:12)
[2024-04-15] MEDS: POTASSIUM EFFERVESENT TAB 25 MEQ PO ONE (12:52)
[2024-04-15] MEDS: HYDROcodone-ACET 7.5/325MG TAB PO SCH (12:55)
[2024-04-15] MEDS: POTASSIUM CHL 20MEQ/100ML 100 ML IV SCH (12:55)
[2024-04-15] MEDS ORDERED: WARFARIN SODIUM 5 MG TAB PO ONE (17:00)
[2024-04-15] MEDS: TAMSULOSIN HYDROCHLORIDE 0.4 MG CAP PO ONE (21:22)
[2024-04-15] MEDS: FERROUS SULFATE 325mg EC TAB PO ONE (21:29)
[2024-04-16 01:00] VITALS: BP 137/83; PULSE 78; RESP 17; TEMP 97.9; O2SAT 95
[2024-04-16 05:00] VITALS: BP 128/86; PULSE 84; RESP 17; TEMP 98.1; O2SAT 96
[2024-04-16 06:25] LABS: Basophils # (auto) 0.1 10 ^3/uL (0-0.2); Basophils % (auto) 0.6 % (0.0-2.0); Eosinophils # (auto) 0.2 10 ^3/uL (0-0.8); Eosinophils % (auto) 1.7 % (0.0-7.0); Hematocrit 39.7 % (41.0-53.0); Hemoglobin 13.6 g/dL (13.5-17.5); Lymphocytes # (auto) 1.8 10 ^3/uL (0.4-5.4); Lymphocytes % (auto) 15.4 % (10.0-50.0); Mean Corpuscular Hemoglobin 31.2 pg (28.0-32.0); Mean Corpuscular Hgb Conc. 34.3 g/dL (32.0-36.0); Monocytes % (auto) 8.3 % (0.0-12.0); Neutrophils # (auto) 8.8 10 ^3/uL (1.6-8.6); Nucleated Red Blood Cells % 0.1 %; Red Blood Cells 4.36 10^6/uL (4.5-5.90); Red Cell Distribution Width 13.4 % (11.8-14.3); White Blood Cell 11.9 10^3/uL (4.4-10.8)
[2024-04-16 06:37] LABS: INR 1.11 (0.9-1.15); Prothrombin Time 11.7 sec (9.3-11.8)
[2024-04-16 08:35] VITALS: O2SAT 96
[2024-04-16 09:00] VITALS: BP 139/83; PULSE 78; RESP 18; TEMP 97.8; O2SAT 95
[2024-04-16 09:19] LABS: Chloride 106 mmol/L (98-107); Sodium 141 mmol/L (136-145)
[2024-04-16 09:20] LABS: Anion Gap 4 (5-15); Calcium 9.2 mg/dL (8.7-10.4); Carbon Dioxide 31 mmol/L (20-30)
[2024-04-16] MEDS: FERROUS SULFATE 325mg EC TAB PO SCH (09:22)
[2024-04-16 09:25] LABS: Blood Urea Nitrogen 7 mg/dL (9-23); Glucose 102 mg/dL (74-106)
[2024-04-16 09:39] LABS: BUN/Creatinine Ratio 12.7 (10.0-20.0)
[2024-04-16] MEDS: CIPROFLOXACIN HCL 500 MG TAB PO SCH (09:51)
[2024-04-16] MEDS ORDERED: APIXABAN 5 MG TAB PO SCH (10:00)
[2024-04-16] MEDS ORDERED: NICO14DI9 TD (11:08)
[2024-04-16] MEDS ORDERED: TAMS-35 PO (11:08)
[2024-04-16] MEDS ORDERED: APIX5TAB PO (11:08)
[2024-04-16] MEDS ORDERED: ACET-1882 PO (11:08)
[2024-04-16] MEDS ORDERED: FER325T PO (11:08)
[2024-04-16] MEDS ORDERED: TAMSULOSIN HYDROCHLORIDE 0.4 MG CAP PO SCH (18:00)
== END 2024-04-16 14:30 | disposition home or self-care (01) | DRG 690 ==
LOC: ER 11:30 → OVERFLOW 19:30 → EAST 19:30
PROVIDERS: ADMIT Nurse Practitioner Family; ATTEND Nurse Practitioner Family
DX: N39.0 Urinary tract infection, site not specified (principal); C61 Malignant neoplasm of prostate; N13.9 Obstructive and reflux uropathy, unspecified; E87.6 Hypokalemia; J44.89 Other specified chronic obstructive pulmonary disease; I10 Essential (primary) hypertension; F17.210 Nicotine dependence, cigarettes, uncomplicated; E78.5 Hyperlipidemia, unspecified; I48.0 Paroxysmal atrial fibrillation; S01.401A Unspecified open wound of right cheek and temporomandibular area, initial encounter; Z79.899 Other long term (current) drug therapy; Z79.01 Long term (current) use of anticoagulants; Z88.0 Allergy status to penicillin; X58.XXXA Exposure to other specified factors, initial encounter; Y93.89 Activity, other specified; Y92.89 Other specified places as the place of occurrence of the external cause; Y99.8 Other external cause status
CPT/HCPCS: 36415; 70450; 71250; 74018; 74176; 76870; 80048; 80053; 80061; 81001; 82360; 82607; 82728; 83036; 83540; 83690; 83735; 84153; 84154; 84439; 84443; 84481; 85025; 85610; 85730; 87081; 87086; 93005; G0378; J2405; J3480

== ENCOUNTER 2024-04-18 08:01 | Emergency (ER) | payer OTHER ==
[~2024-04-18] VITALS: Ht 188 cm; Wt 64.0 kg
[~2024-04-18 08:01] MED LIST changes: +ACET-1882 PO; +APIX5TAB PO; -ATARAX PO; -DIGO0.2566 PO; +FER325T PO; +NICO14DI9 TD; -PHEN-922 PO; -PROVENTIL; +TAMS-35 PO; -WARF5TAB PO
[2024-04-18] MEDS: HYDROcodone-ACET 10/325MG TAB PO ONE (09:32)
[2024-04-18] MEDS: KETOROLAC TROMETH 60MG/2ML VIAL IM ONE (09:33)
[2024-04-18 11:12] LABS: Urine Bacteria None Seen /hpf (None Seen)
[2024-04-18 11:33] LABS: Urine Blood 1+ /uL (Negative); Urine Clarity Turbid (Clear); Urine Color Dark-Yellow (Yellow); Urine Mucus FEW (None Seen); Urine Protein, UAD TRACE (Negative); Urine Specific Gravity 1.023 (1.001-1.035); Urine Urobilinogen 2 mg/dL (Negative); Urine WBC 20 /hpf (0 - 3); Urine pH 5.5 (5.0-9.0)
[2024-04-18] MEDS ORDERED: BACDST PO (11:55)
[2024-04-18 12:20] VITALS: BP 107/42; PULSE 84; RESP 17; O2SAT 96
== END 2024-04-18 12:24 | disposition home or self-care (01) ==
LOC: ER 08:01
DX: N39.0 Urinary tract infection, site not specified (principal); J45.909 Unspecified asthma, uncomplicated; E78.5 Hyperlipidemia, unspecified; I10 Essential (primary) hypertension; F17.210 Nicotine dependence, cigarettes, uncomplicated; Z88.0 Allergy status to penicillin; Z88.8 Allergy status to other drugs, medicaments and biological substances; Z79.1 Long term (current) use of non-steroidal anti-inflammatories (NSAID); Z79.01 Long term (current) use of anticoagulants; Z79.899 Other long term (current) drug therapy
CPT/HCPCS: 81001; 96372; 99283; J1885

== ENCOUNTER 2024-04-20 23:23 | Emergency (ER) | payer OTHER ==
[~2024-04-20] VITALS: Ht 188 cm; Wt 62.5 kg
[~2024-04-20 23:23] MED LIST changes: -LACT10SO3 PO
[2024-04-21] MEDS ORDERED: LACT10SO3 PO (02:39)
[2024-04-21] MEDS: MORPHINE SULFATE 4 MG/ML SYR/VIAL IM ONE (03:54)
[2024-04-21 04:00] VITALS: BP 106/70; TEMP 98
[2024-04-21 04:01] VITALS: PULSE 114; RESP 22; O2SAT 100
== END 2024-04-21 04:05 | disposition home or self-care (01) ==
LOC: ER 23:23
DX: N13.9 Obstructive and reflux uropathy, unspecified (principal); K59.00 Constipation, unspecified; J45.909 Unspecified asthma, uncomplicated; E78.5 Hyperlipidemia, unspecified; I10 Essential (primary) hypertension; F17.210 Nicotine dependence, cigarettes, uncomplicated; Z88.0 Allergy status to penicillin; Z88.8 Allergy status to other drugs, medicaments and biological substances; Z79.1 Long term (current) use of non-steroidal anti-inflammatories (NSAID); Z79.891 Long term (current) use of opiate analgesic; Z79.01 Long term (current) use of anticoagulants; Z79.899 Other long term (current) drug therapy
CPT/HCPCS: 74176; 76856; 96372; 99285; J2270

== ENCOUNTER → 2024-04-20 | Outpatient (CLI) | payer OTHER ==
[~2024-04-20] MED LIST changes: +BACDST PO; +LACT10SO3 PO
[2024-04-20 12:24] LABS: Anion Gap 7 (5-15); Calcium 9.5 mg/dL (8.7-10.4); Carbon Dioxide 29 mmol/L (20-30); Chloride 99 mmol/L (98-107); Potassium 3.7 mmol/L (3.5-5.1)
[2024-04-20 12:30] LABS: BUN/Creatinine Ratio 29.3 (10.0-20.0); Blood Urea Nitrogen 27 mg/dL (9-23); Glucose 121 mg/dL (74-106)
[2024-04-20 12:31] LABS: Sodium 135 mmol/L (136-145)
== END | disposition home or self-care (01) ==
LOC: LAB 11:38
PROVIDERS: ATTEND Nurse Practitioner Family
DX: R10.9 Unspecified abdominal pain (principal)
CPT/HCPCS: 36415; 80048

== ENCOUNTER 2024-04-29 18:39 | Inpatient (IN) | payer OTHER ==
[~2024-04-29] VITALS: Ht 188 cm; Wt 65.4 kg
[~2024-04-29 18:39] MED LIST changes: +LACT10SO3 PO
[2024-04-29 19:03] LABS: Urine Bacteria None Seen /hpf (None Seen)
[2024-04-29 19:16] LABS: Urine Blood 3+ /uL (Negative); Urine Clarity Ex.Turbid (Clear); Urine Mucus FEW (None Seen); Urine Protein, UAD 2+ (Negative); Urine Urobilinogen Normal (Negative); Urine WBC 18 /hpf (0 - 3)
[2024-04-29 19:17] LABS: Urine Color DARK BROWN (Yellow)
[2024-04-29 20:07] LABS: Basophils # (auto) 0 10 ^3/uL (0-0.2); Basophils % (auto) 0.4 % (0.0-2.0); Eosinophils # (auto) 0.2 10 ^3/uL (0-0.8); Eosinophils % (auto) 1.3 % (0.0-7.0); Hemoglobin 15.1 g/dL (13.5-17.5); Lymphocytes # (auto) 1.9 10 ^3/uL (0.4-5.4); Lymphocytes % (auto) 16.2 % (10.0-50.0); Mean Corpuscular Hemoglobin 30.7 pg (28.0-32.0); Mean Corpuscular Hgb Conc. 33.5 g/dL (32.0-36.0); Mean Corpuscular Volume 91.7 fL (80.0-100.0); Monocytes # (auto) 0.7 10 ^3/uL (0-1.3); Monocytes % (auto) 5.8 % (0.0-12.0); Neutrophils # (auto) 8.8 10 ^3/uL (1.6-8.6); Neutrophils % (auto) 76.3 % (37.0-80.0); Red Blood Cells 4.91 10^6/uL (4.5-5.90); White Blood Cell 11.6 10^3/uL (4.4-10.8)
[2024-04-29 20:27] LABS: Alanine Aminotransferase 21 U/L (7-40); Albumin 4.4 g/dL (3.2-4.8); Alkaline Phosphatase 110 U/L (46-116); Anion Gap 10 (5-15); Aspartate Aminotransferase 60 U/L (13-40); BUN/Creatinine Ratio 28.8 (10.0-20.0); Bilirubin, Total 0.6 mg/dL (0.2-1.0); Blood Urea Nitrogen 23 mg/dL (9-23); Calcium 9.5 mg/dL (8.7-10.4); Carbon Dioxide 27 mmol/L (20-30); Chloride 99 mmol/L (98-107); Glucose 126 mg/dL (74-106); Sodium 136 mmol/L (136-145); Total Protein 7.3 g/dL (5.7-8.2)
[2024-04-30] VITALS (12 sets, daily range): BP systolic 105–116; BP diastolic 59–75; PULSE 70–105; RESP 16–20; TEMP 96.9–98.6; O2SAT 93–98
[2024-04-30] MEDS ORDERED: IBUPROFEN 600 MG TAB PO PRN (00:45)
[2024-04-30] MEDS ORDERED: DOCUSATE SOD 100 MG CAP PO PRN (00:45)
[2024-04-30] MEDS ORDERED: ONDANSETRON HCL 4 MG/2 ML VIAL IV PRN (00:45)
[2024-04-30] MEDS: cefTRIAXone 1GM/50ML D5W 50 ML IV ONE (01:08)
[2024-04-30] MEDS: SODIUM CHLORIDE 0.9% 1,000 ML IV SCH ×2 (01:09→09:59)
[2024-04-30] MEDS: IOHEXOL 300 MG/ML 100ML BOTTLE IJ ONE (02:06)
[2024-04-30] MEDS ORDERED: NITROGLYCERIN 0.4 MG SL TAB SL PRN (03:15)
[2024-04-30] MEDS ORDERED: MORPHINE SULFATE INJ 2 MG/ml SYRG IV PRN (03:15)
[2024-04-30] MEDS ORDERED: ALBUTEROL SULF 2.5 MG/0.5ML(0.5%) NEB SOLN NEB PRN (09:45)
[2024-04-30] MEDS ORDERED: IPRATROPIUM BROM 0.5 MG/2.5ML INH SOL NEB PRN (09:45)
[2024-04-30] MEDS: levoFLOXacin 500MG 100 ML IV SCH (09:55)
[2024-04-30] MEDS: METOPROLOL TARTRATE 25 MG TAB PO SCH (09:56)
[2024-04-30] MEDS ORDERED: APIXABAN 5 MG TAB PO SCH (10:00)
[2024-04-30] MEDS: LIDOCAINE VISCOUS 2% 15ML UD MT ONE (10:18)
[2024-04-30] MEDS ORDERED: CLINIMIX PER PHARMACY 0 ML IV SCH (11:30)
[2024-04-30] MEDS ORDERED: DEXTROSE (50%) 50ML SYRG IV SCH (12:30)
[2024-04-30 12:58] LABS: Magnesium 1.6 mg/dL (1.6-2.6)
[2024-04-30 12:59] LABS: INR 1.07 (0.9-1.15); Phosphorus 3.6 mg/dL (2.4-5.1); Prothrombin Time 11.3 sec (9.3-11.8)
[2024-04-30 14:53] LABS: Basophils # (auto) 0 10 ^3/uL (0-0.2); Basophils % (auto) 0.3 % (0.0-2.0); Eosinophils # (auto) 0.1 10 ^3/uL (0-0.8); Eosinophils % (auto) 1.5 % (0.0-7.0); Hematocrit 39.1 % (41.0-53.0); Lymphocytes # (auto) 1.2 10 ^3/uL (0.4-5.4); Lymphocytes % (auto) 12.9 % (10.0-50.0); Mean Corpuscular Hemoglobin 30.5 pg (28.0-32.0); Mean Corpuscular Hgb Conc. 33.4 g/dL (32.0-36.0); Mean Corpuscular Volume 91.4 fL (80.0-100.0); Monocytes # (auto) 0.6 10 ^3/uL (0-1.3); Monocytes % (auto) 6.8 % (0.0-12.0); Neutrophils # (auto) 7.2 10 ^3/uL (1.6-8.6); Neutrophils % (auto) 78.5 % (37.0-80.0); Red Blood Cells 4.28 10^6/uL (4.5-5.90); Red Cell Distribution Width 13.5 % (11.8-14.3); White Blood Cell 9.1 10^3/uL (4.4-10.8)
[2024-04-30 15:01] LABS: Alanine Aminotransferase 17 U/L (7-40); Albumin 3.6 g/dL (3.2-4.8); Alkaline Phosphatase 92 U/L (46-116); Anion Gap 6 (5-15); Aspartate Aminotransferase 44 U/L (13-40); BUN/Creatinine Ratio 49.2 (10.0-20.0); Bilirubin, Total 0.6 mg/dL (0.2-1.0); Blood Urea Nitrogen 30 mg/dL (9-23); Calcium 8.7 mg/dL (8.7-10.4); Carbon Dioxide 28 mmol/L (20-30); Chloride 102 mmol/L (98-107); Glucose 108 mg/dL (74-106); Potassium 3.9 mmol/L (3.5-5.1); Sodium 136 mmol/L (136-145); Total Protein 5.7 g/dL (5.7-8.2)
[2024-04-30] MEDS: PANTOPRAZOLE 40 MG/10 ML VIAL INJ IV ONE (15:16)
[2024-04-30] MEDS: metroNIDAZOLE 500MG/100ML 100 ML IV ONE (15:17)
[2024-04-30 15:55] LABS: Amphetamine Screen, Urine Neg (NEGATIVE); Barbiturate Scree,Urine Neg (NEGATIVE); Benzodiazephine Screen, Urine Neg (NEGATIVE); Cannabinoid Screen, Urine Pos (NEGATIVE); Cocaine Screen, Urine Neg (NEGATIVE); Opiate Scree,Urine Neg (NEGATIVE); Phencyclidine Screen, Urine Neg (NEGATIVE)
[2024-04-30] MEDS: MAGNESIUM OXIDE 400 MG TAB PO ONE (16:03)
[2024-04-30] MEDS: TAMSULOSIN HYDROCHLORIDE 0.4 MG CAP PO SCH (16:04)
[2024-04-30] MEDS: NICOTINE 14 MG/24HR TOPICAL PATCH TD ONE (16:04)
[2024-04-30] MEDS: LORazepam 2MG/ML-1ML VIAL IV PRN (16:06)
[2024-04-30] MEDS ORDERED: InsuLIN REG 1unit/0.01ml Soln (100units/ml) SC SCH (18:00)
[2024-04-30] MEDS ORDERED: ACCU-CHEK COMFORT CURVE STRIP VI SCH (18:00)
[2024-04-30] MEDS: metroNIDAZOLE 500MG/100ML 100 ML IV SCH (20:00)
[2024-04-30] MEDS ORDERED: AMINO ACID INFUSION IN D10W 1,000 ML IV SCH (20:00)
[2024-04-30] MEDS: ATORVASTATIN 20 MG TAB PO SCH (21:15)
[2024-05-01] VITALS (11 sets, daily range): BP systolic 106–119; BP diastolic 62–75; PULSE 60–93; RESP 16–20; TEMP 97.1–98.1; O2SAT 92–97
[2024-05-01 06:16] LABS: Basophils # (auto) 0 10 ^3/uL (0-0.2); Basophils % (auto) 0.3 % (0.0-2.0); Eosinophils # (auto) 0.1 10 ^3/uL (0-0.8); Eosinophils % (auto) 1.9 % (0.0-7.0); Hematocrit 35.5 % (41.0-53.0); Hemoglobin 12.3 g/dL (13.5-17.5); Lymphocytes # (auto) 1.1 10 ^3/uL (0.4-5.4); Mean Corpuscular Hemoglobin 31.7 pg (28.0-32.0); Mean Corpuscular Hgb Conc. 34.7 g/dL (32.0-36.0); Mean Corpuscular Volume 91.4 fL (80.0-100.0); Monocytes # (auto) 0.6 10 ^3/uL (0-1.3); Monocytes % (auto) 7.3 % (0.0-12.0); Neutrophils # (auto) 5.8 10 ^3/uL (1.6-8.6); Neutrophils % (auto) 75.5 % (37.0-80.0); Nucleated Red Blood Cells % 0.1 %; Red Blood Cells 3.88 10^6/uL (4.5-5.90); Red Cell Distribution Width 13.9 % (11.8-14.3); White Blood Cell 7.6 10^3/uL (4.4-10.8)
[2024-05-01 06:37] LABS: Alanine Aminotransferase 11 U/L (7-40); Albumin 3.3 g/dL (3.2-4.8); Alkaline Phosphatase 78 U/L (46-116); Anion Gap 9 (5-15); Aspartate Aminotransferase 31 U/L (13-40); Blood Urea Nitrogen 21 mg/dL (9-23); Calcium 8.3 mg/dL (8.7-10.4); Carbon Dioxide 25 mmol/L (20-30); Chloride 105 mmol/L (98-107); Glucose 91 mg/dL (74-106); Potassium 3.5 mmol/L (3.5-5.1); Sodium 139 mmol/L (136-145)
[2024-05-01 06:38] LABS: Bilirubin, Total 0.6 mg/dL (0.2-1.0); Total Protein 5.5 g/dL (5.7-8.2)
[2024-05-01] MEDS: HYDROcodone-ACET 5/325MG TAB PO PRN (08:29)
[2024-05-01] MEDS ORDERED: GASTROGRAFIN 120 ML SOL ONE (09:51)
[2024-05-01] MEDS: NICOTINE 14 MG/24HR TOPICAL PATCH TD SCH (10:00)
[2024-05-01] MEDS: PANTOPRAZOLE 40 MG/10 ML VIAL INJ IV SCH (10:08)
[2024-05-01] MEDS: CALCIUM GLUC 1,000mg/50ml-NS 50 ML IV ONE (11:46)
[2024-05-01] MEDS ORDERED: TPN PER PHARMACY 0 ML IV SCH (18:15)
[2024-05-01] MEDS: AMINO ACID INFUSION IN D10W 1,000 ML IV SCH (20:38)
[2024-05-01] MEDS: POTASSIUM CHL 20MEQ/100ML 100 ML IV ONE (20:38)
== END 2024-05-01 23:49 | disposition left against medical advice (07) | DRG 698 ==
LOC: ER 18:39 → TELE 04-30 03:13 → TELE-E-ADS 04-30 05:12 → EAST 04-30 19:39
PROVIDERS: ADMIT Internal Medicine; ATTEND Internal Medicine
PROC: 0D9670Z Drainage of Stomach with Drainage Device, Via Natural or Artificial Opening (ICD-10-PCS; principal; 2024-05-01)
DX: T83.098A Other mechanical complication of other urinary catheter, initial encounter (principal); A41.9 Sepsis, unspecified organism; N39.0 Urinary tract infection, site not specified; K56.609 Unspecified intestinal obstruction, unspecified as to partial versus complete obstruction; N13.8 Other obstructive and reflux uropathy; N40.1 Benign prostatic hyperplasia with lower urinary tract symptoms; Z53.29 Procedure and treatment not carried out because of patient's decision for other reasons; J45.909 Unspecified asthma, uncomplicated; F17.210 Nicotine dependence, cigarettes, uncomplicated; I10 Essential (primary) hypertension; E78.5 Hyperlipidemia, unspecified; R33.8 Other retention of urine; I48.91 Unspecified atrial fibrillation; F41.9 Anxiety disorder, unspecified; R74.01 Elevation of levels of liver transaminase levels; Z88.0 Allergy status to penicillin; Z79.01 Long term (current) use of anticoagulants; Y84.8 Other medical procedures as the cause of abnormal reaction of the patient, or of later complication, without mention of misadventure at the time of the procedure; Y92.89 Other specified places as the place of occurrence of the external cause
CPT/HCPCS: 36415; 71045; 74018; 80053; 80061; 80307; 81001; 82270; 82306; 82607; 82962; 83605; 83735; 84100; 84443; 85025; 85610; 85730; 87081; 87086; 96365; G0378; J1956; J2470; J3480; J3490

== ENCOUNTER 2024-05-03 10:28 | Inpatient (IN) | payer OTHER ==
[~2024-05-03] VITALS: Ht 180.3 cm; Wt 66.0 kg
[~2024-05-03 10:28] MED LIST changes: +ATOR-507 PO; +FLUC150T47 PO; +HYDR-4902 PO; +PHEN-1045 PO
[2024-05-03] MEDS ORDERED: LACTATED RINGER'S 1,000 ML IV ONE (11:15)
[2024-05-03] MEDS ORDERED: ONDANSETRON HCL 4 MG/2 ML VIAL IV PRN ×2 (11:15→11:30)
[2024-05-03] MEDS ORDERED: DOCUSATE SOD 100 MG CAP PO PRN ×2 (11:15→11:30)
[2024-05-03] MEDS ORDERED: HYDROmorphone HCL 2 MG/ML VL/or syr IV PRN (11:15)
[2024-05-03 11:41] VITALS: PULSE 60; RESP 16; O2SAT 95
[2024-05-03 11:44] LABS: Basophils # (auto) 0 10 ^3/uL (0-0.2); Basophils % (auto) 0.5 % (0.0-2.0); Eosinophils # (auto) 0.3 10 ^3/uL (0-0.8); Eosinophils % (auto) 3.7 % (0.0-7.0); Hematocrit 34.3 % (41.0-53.0); Hemoglobin 11.6 g/dL (13.5-17.5); Lymphocytes # (auto) 1.9 10 ^3/uL (0.4-5.4); Lymphocytes % (auto) 21.9 % (10.0-50.0); Mean Corpuscular Hemoglobin 31.4 pg (28.0-32.0); Mean Corpuscular Hgb Conc. 33.9 g/dL (32.0-36.0); Mean Corpuscular Volume 92.6 fL (80.0-100.0); Monocytes # (auto) 0.5 10 ^3/uL (0-1.3); Neutrophils % (auto) 67.9 % (37.0-80.0); Red Cell Distribution Width 14.2 % (11.8-14.3); White Blood Cell 8.8 10^3/uL (4.4-10.8)
[2024-05-03 12:02] LABS: Albumin 3.3 g/dL (3.2-4.8); Alkaline Phosphatase 79 U/L (46-116); Anion Gap 6 (5-15); Aspartate Aminotransferase 19 U/L (13-40); BUN/Creatinine Ratio 25.8 (10.0-20.0); Blood Urea Nitrogen 16 mg/dL (9-23); Calcium 8.2 mg/dL (8.7-10.4); Carbon Dioxide 29 mmol/L (20-30); Chloride 107 mmol/L (98-107); Glucose 97 mg/dL (74-106); Potassium 3.2 mmol/L (3.5-5.1); Sodium 142 mmol/L (136-145)
[2024-05-03 12:03] LABS: Bilirubin, Total 0.3 mg/dL (0.2-1.0); Total Protein 5.4 g/dL (5.7-8.2)
[2024-05-03 12:06] LABS: Alanine Aminotransferase < 9 U/L (7-40)
[2024-05-03] MEDS: LACTATED RINGER'S 1,000 ML IV ONE (12:49)
[2024-05-03] MEDS ORDERED: SODIUM CHLOR 0.9% PF (SALINE LOCK) 10ML VIAL/SYR IV SCH (14:00)
[2024-05-03] MEDS: SODIUM CHLOR 0.9% PF (SALINE LOCK) 10ML VIAL/SYR IV SCH (14:10)
[2024-05-03] MEDS: GASTROGRAFIN 120 ML SOL ONE (16:16)
[2024-05-03] MEDS: POTASSIUM CHL 20 Meq TABLET PO ONE (17:54)
[2024-05-03 20:00] VITALS: PULSE 62; O2SAT 94
[2024-05-03 21:33] LABS: Urine Bacteria None Seen /hpf (None Seen)
[2024-05-03 22:05] LABS: Urine Blood Negative /uL (Negative); Urine Clarity Clear (Clear); Urine Color Yellow (Yellow); Urine Mucus FEW (None Seen); Urine Protein, UAD TRACE (Negative); Urine Specific Gravity 1.024 (1.001-1.035); Urine Urobilinogen Normal (Negative); Urine WBC 15 /hpf (0 - 3)
[2024-05-03 22:14] VITALS: BP 102/65; PULSE 64; RESP 16; TEMP 97.6; O2SAT 93
[2024-05-03] MEDS ORDERED: HYDR-3682 PO (22:19)
[2024-05-03] MEDS ORDERED: ESCI1TAB37 PO (22:19)
[2024-05-03] MEDS ORDERED: BACL20TA PO (22:19)
[2024-05-03] MEDS ORDERED: ATOR40TA52 PO (22:19)
[2024-05-03] MEDS: HYDROmorphone HCL 2 MG/ML VL/or syr IV PRN (22:40)
[2024-05-03 23:44] VITALS: BP 102/65; PULSE 64; RESP 18; TEMP 97.6; O2SAT 93
[2024-05-04] VITALS (7 sets, daily range): BP systolic 106–118; BP diastolic 63–77; PULSE 59–71; RESP 17–20; TEMP 97.5–98.7; O2SAT 91–95
[2024-05-04] MEDS: POTASSIUM CHLORIDE 40 MEQ, LIDOCAINE 1% (LOCAL ANESTH.) 4 ML in SODIUM CHL 0.9% 250 ML IV ONE (09:54)
[2024-05-04] MEDS ORDERED: GASTROGRAFIN 30 ML SOL ONE (10:35)
[2024-05-04] MEDS: PANTOPRAZOLE 40 MG/10 ML VIAL INJ IV SCH (21:54)
[2024-05-05 01:00] VITALS: BP 110/67; PULSE 62; RESP 20; TEMP 98.1; O2SAT 96
[2024-05-05 05:00] VITALS: BP 110/67; PULSE 64; RESP 18; TEMP 97.9; O2SAT 90
[2024-05-05 05:56] LABS: Basophils # (auto) 0 10 ^3/uL (0-0.2); Basophils % (auto) 0.5 % (0.0-2.0); Eosinophils # (auto) 0.3 10 ^3/uL (0-0.8); Hematocrit 37.9 % (41.0-53.0); Hemoglobin 12.4 g/dL (13.5-17.5); Lymphocytes # (auto) 1.7 10 ^3/uL (0.4-5.4); Lymphocytes % (auto) 20.2 % (10.0-50.0); Mean Corpuscular Hemoglobin 30.3 pg (28.0-32.0); Mean Corpuscular Hgb Conc. 32.8 g/dL (32.0-36.0); Mean Corpuscular Volume 92.5 fL (80.0-100.0); Monocytes # (auto) 0.4 10 ^3/uL (0-1.3); Monocytes % (auto) 4.5 % (0.0-12.0); Neutrophils # (auto) 6.2 10 ^3/uL (1.6-8.6); Neutrophils % (auto) 71.8 % (37.0-80.0); Nucleated Red Blood Cells % 0.2 %; Red Blood Cells 4.09 10^6/uL (4.5-5.90); Red Cell Distribution Width 14.1 % (11.8-14.3); White Blood Cell 8.6 10^3/uL (4.4-10.8)
[2024-05-05 06:10] LABS: Anion Gap 7 (5-15); Calcium 8.6 mg/dL (8.7-10.4); Carbon Dioxide 27 mmol/L (20-30); Chloride 105 mmol/L (98-107); Potassium 3.7 mmol/L (3.5-5.1); Sodium 139 mmol/L (136-145)
[2024-05-05 06:15] LABS: Glucose 70 mg/dL (74-106)
[2024-05-05 06:16] LABS: BUN/Creatinine Ratio 23.5 (10.0-20.0); Blood Urea Nitrogen 12 mg/dL (9-23)
[2024-05-05] MEDS: SODIUM CHLORIDE 0.9% 1,000 ML IV ONE (06:46)
[2024-05-05 09:00] VITALS: BP 97/64; PULSE 65; RESP 16; TEMP 98.8; O2SAT 98
[2024-05-05] MEDS ORDERED: UMEC1AER INH (11:24)
[2024-05-05] MEDS ORDERED: IBUP-1456 PO (11:24)
[2024-05-05] MEDS ORDERED: DIGO0.12 PO (11:24)
[2024-05-05] MEDS ORDERED: LACT10SO3 PO (11:24)
[2024-05-05] MEDS ORDERED: CELE200C PO (11:24)
[2024-05-05] MEDS: GOLYTELY 4L KIT PO ONE (11:32)
[2024-05-05 12:44] VITALS: BP 103/74; PULSE 71; RESP 18; TEMP 97.5; O2SAT 93
[2024-05-05 16:44] VITALS: BP 92/65; PULSE 70; RESP 16; TEMP 98.2; O2SAT 93
[2024-05-05 21:00] VITALS: BP 112/71; PULSE 66; RESP 19; TEMP 98.1; O2SAT 94
[2024-05-06] VITALS (8 sets, daily range): BP systolic 106–120; BP diastolic 51–76; PULSE 49–70; RESP 13–18; TEMP 97.3–98.1; O2SAT 92–98
[2024-05-06] MEDS: MAGNESIUM CITRATE SOLUTION 300 ML BTL PO ONE (06:18)
[2024-05-06] MEDS: GOLYTELY 4L KIT PO ONE (06:20)
[2024-05-06 07:21] LABS: Chloride 103 mmol/L (98-107); Potassium 3.9 mmol/L (3.5-5.1); Sodium 139 mmol/L (136-145)
[2024-05-06 07:22] LABS: Anion Gap 7 (5-15); Calcium 8.9 mg/dL (8.7-10.4); Carbon Dioxide 29 mmol/L (20-30)
[2024-05-06 07:27] LABS: BUN/Creatinine Ratio 18.3 (10.0-20.0); Blood Urea Nitrogen 11 mg/dL (9-23); Glucose 99 mg/dL (74-106)
[2024-05-06] MEDS ORDERED: LIDOCAINE 2% (LOCAL ANESTH.) PF 5ml SDV ONE (15:21)
[2024-05-06] MEDS ORDERED: PROPOFOL 10 MG/ML 20 ML IV ONE ×2 (15:21→15:32)
[2024-05-06] MEDS ORDERED: GLYCOPYRROLATE 0.2 MG/ML 1ML VIAL ONE (15:41)
[2024-05-06] MEDS ORDERED: ePHEDrine SULFATE 50 MG/ML AMP ONE (15:44)
[2024-05-06] MEDS ORDERED: SIMETHICONE 40 MG/0.6 ML ORAL DROP ONE (15:44)
[2024-05-06] MEDS: LIDOCAINE VISCOUS 2% 15ML UD ONE (18:23)
[2024-05-07 01:00] VITALS: BP_SYST 104; BP_SYST 139; BP_DIAS 44; BP_DIAS 65; PULSE 58; PULSE 68; RESP 18; RESP 20; TEMP 98.1; TEMP 98.2; O2SAT 100; O2SAT 95
[2024-05-07 05:00] VITALS: BP 102/60; PULSE 69; RESP 18; TEMP 97.8; O2SAT 95
[2024-05-07 06:48] LABS: Basophils # (auto) 0 10 ^3/uL (0-0.2); Basophils % (auto) 0.4 % (0.0-2.0); Eosinophils # (auto) 0.1 10 ^3/uL (0-0.8); Eosinophils % (auto) 1.6 % (0.0-7.0); Hematocrit 34.6 % (41.0-53.0); Hemoglobin 11.8 g/dL (13.5-17.5); Lymphocytes # (auto) 1.5 10 ^3/uL (0.4-5.4); Lymphocytes % (auto) 20.5 % (10.0-50.0); Mean Corpuscular Hemoglobin 31.7 pg (28.0-32.0); Mean Corpuscular Hgb Conc. 34.1 g/dL (32.0-36.0); Mean Corpuscular Volume 92.8 fL (80.0-100.0); Monocytes # (auto) 0.6 10 ^3/uL (0-1.3); Monocytes % (auto) 7.5 % (0.0-12.0); Neutrophils # (auto) 5.2 10 ^3/uL (1.6-8.6); Red Blood Cells 3.73 10^6/uL (4.5-5.90); Red Cell Distribution Width 14.5 % (11.8-14.3); White Blood Cell 7.4 10^3/uL (4.4-10.8)
[2024-05-07 06:57] LABS: Anion Gap 5 (5-15); Carbon Dioxide 28 mmol/L (20-30); Chloride 107 mmol/L (98-107); Potassium 3.3 mmol/L (3.5-5.1); Sodium 140 mmol/L (136-145)
[2024-05-07 06:58] LABS: Calcium 8.1 mg/dL (8.7-10.4)
[2024-05-07 07:02] LABS: Glucose 158 mg/dL (74-106)
[2024-05-07 07:03] LABS: BUN/Creatinine Ratio 20.8 (10.0-20.0); Blood Urea Nitrogen 11 mg/dL (9-23)
[2024-05-07 09:00] VITALS: BP 92/60; PULSE 62; RESP 14; TEMP 98; O2SAT 95
[2024-05-07] MEDS ORDERED: PANT40T PO (10:42)
[2024-05-07 13:00] VITALS: BP 97/63; PULSE 77; RESP 18; TEMP 98.5; O2SAT 96
[2024-05-07 13:09] VITALS: TEMP 36.7
== END 2024-05-07 13:45 | disposition home or self-care (01) | DRG 388 ==
LOC: ER 10:28 → OVERFLOW 11:06 → EAST 21:50
PROVIDERS: ADMIT Internal Medicine; ATTEND Internal Medicine
PROC: 0D9670Z Drainage of Stomach with Drainage Device, Via Natural or Artificial Opening (ICD-10-PCS; principal; 2024-05-03)
PROC: 0DB68ZX Excision of Stomach, Via Natural or Artificial Opening Endoscopic, Diagnostic (ICD-10-PCS; 2024-05-06)
PROC: 0DBN8ZZ Excision of Sigmoid Colon, Via Natural or Artificial Opening Endoscopic (ICD-10-PCS; 2024-05-06)
PROC: 0DB98ZX Excision of Duodenum, Via Natural or Artificial Opening Endoscopic, Diagnostic (ICD-10-PCS; 2024-05-06 15:21)
DX: K56.609 Unspecified intestinal obstruction, unspecified as to partial versus complete obstruction (principal); K29.71 Gastritis, unspecified, with bleeding; K57.31 Diverticulosis of large intestine without perforation or abscess with bleeding; C20 Malignant neoplasm of rectum; I10 Essential (primary) hypertension; N40.1 Benign prostatic hyperplasia with lower urinary tract symptoms; R33.8 Other retention of urine; J45.909 Unspecified asthma, uncomplicated; E78.5 Hyperlipidemia, unspecified; F17.210 Nicotine dependence, cigarettes, uncomplicated; E87.6 Hypokalemia; K63.5 Polyp of colon; K43.9 Ventral hernia without obstruction or gangrene; K64.8 Other hemorrhoids; Z88.0 Allergy status to penicillin; Z88.8 Allergy status to other drugs, medicaments and biological substances
CPT/HCPCS: 36415; 71045; 74018; 74176; 76705; 76856; 80048; 80053; 81001; 82270; 82306; 82607; 83735; 84132; 85025; 87081; G0378; J2001; J2470; J2704

== ENCOUNTER → 2024-08-25 | Outpatient (CLI) | payer OTHER ==
[~2024-08-25] MED LIST changes: -ATOR20TA PO; +BACL20TA PO; +CELE200C PO; +DIGO0.12 PO; +HYDR-3682 PO; -MECL25CH85 PO; -NOR7.5T PO; +PANT40T PO; +UMEC1AER INH
== END | disposition home or self-care (01) ==
LOC: LAB 11:26
PROVIDERS: ATTEND Dermatology
DX: D48.5 Neoplasm of uncertain behavior of skin (principal)

== ENCOUNTER 2025-07-22 09:09 | Emergency (ER) | payer OTHER, MEDICAID ==
[~2025-07-22] VITALS: Ht 188 cm; Wt 65.8 kg
[2025-07-22] MEDS: LIDOCAINE 2%HCL (LOCAL ANESTH.) INJ 20ML MDV ONE (09:30)
--- NOTE | 2025-07-22 09:37 | ED.PDOC ---
HPI Comments A 69 YEAR OLD MALE PRESENTS TO THE ED FOR AN EVALUATION OF A LACERATION TO THE LEFT THIRD FINGER. PATIENT REPORTS HE WENT TO FEED HIS CHICKENS YESTERDAY WHEN HIS ROOSTER ATTACKED AND BIT HIS FINGER. PATIENT PRESENTS WITH A 3CM LACERATION WITH CONTROLLED BLEEDING. HE IS NOT UP TO DATE ON HIS TETANUS VACCINE. PATIENT DENIES FEVER, CHILLS, SHORTNESS OF BREATH, CHEST PAIN, ABDOMINAL PAIN, NAUSEA, VOMITING, HEADACHE, OR OTHER COMPLAINTS. NO OTHER SYMPTOMS OR MODIFYING FACTORS AT THIS TIME. PATIENT IS ALERT, ORIENTED X 4, AND HAS STEADY GAIT Chief Complaint: Laceration Time Seen by MD: 09:20 Primary Care Provider: Unknown Reviewed Notes: Nurses Notes, Medications, Allergies Allergies: Coded Allergies: Penicillins (Verified Allergy, Unknown, RASH, 04/30/24) Home Meds Active Scripts Clindamycin Hcl (Clindamycin Hcl) 300 Mg Cap, 1 CAP PO TID, #21 CAP Prov:TU TAYLOR 07/22/25 Pantoprazole Sodium Sesquihydr (Pantoprazole Sodium) 40 Mg Tab, 40 MG PO DAILY for 30 Days, #30 TAB Prov:JO ANN GATES 05/07/24 Sulfamethoxazole W/Trimethopri (Bactrim Ds Tablet) 1 Tab Tb, 1 TAB PO BID for 10 Days, #20 TAB Prov:HUA MARTINS MD 04/18/24 Tamsulosin Hcl (Flomax) 0.4 Mg Cap, 0.4 MG PO QPM for 30 Days, #30 CAP Prov:BRUNO LA 04/16/24 Nicotine (Nicotine) 14 Mg/24 Hr Dis, 1 PATCH TD DAILY for 30 Days, #30 DIS Prov:BRUNO LA 04/16/24 Ferrous Sulfate (Ferrous Sulfate) 325 Mg Tab, 325 MG PO BIDWM for 30 Days, #60 TAB Prov:BRUNO LA 04/16/24 Apixaban Base (ELIQUIS) 5 Mg Tab, 5 MG PO BID for 30 Days, #60 TAB Prov:BRUNO LA 04/16/24 Acetaminophen (Acetaminophen) 325 Mg Tab, 650 MG PO Q6HP PRN for 10 Days, #80 TAB Prov:BRUNO LA 04/16/24 Reported Medications Hydrocodone-Acetaminophen (Hydrocodone Bitartrate/AC 5-325 mg) 1 Tab Tab, 1 TAB PO Q12HR PRN for PAIN for 30 Days, #60 05/05/24 Ciprofloxacin Hcl (Cipro) 500 Mg Tab, 1 TAB PO Q12HR for 7 Days, #14 05/05/24 Digoxin (Digoxin) 125 Mcg Tab, 1 TAB PO DAILY 05/05/24 Celecoxib (Celebrex) 200 Mg Cap, 1 CAP PO DAILY 05/05/24 Umeclidinium-Vilanterol (Anoro Ellipta 62.5-25 Mcg/INH) 1 Aer Aer, 1 PUFF INH DAILY 05/05/24 Phenazopyridine HCl (Phenazopyridine Hydrochol) 200 Mg Tab, 1 TAB PO BID for 7 Days, #14 TAB 05/05/24 Fluconazole (Fluconazole) 150 Mg Tab, 1 TAB PO DAILY for 1 Day, #1 05/05/24 Lactulose (Lactulose) 10 Gm/15 Ml Allison, 20 ML PO DAILY 05/05/24 Atorvastatin Calcium (Lipitor) 40 Mg Tab, 1 TAB PO DAILY 05/05/24 Hydroxyzine Hcl (Hydroxyzine Hcl) 25 Mg Tab, 1 TAB PO BID 05/03/24 Baclofen (Baclofen) 20 Mg Tab, 1 TAB PO TID 05/03/24 Escitalopram Oxalate (Lexapro) 20 Mg Tab, 1 TAB PO QAM 09/19/12 Metoprolol Succinate (Metoprolol Succinate Er) 25 Mg Tab, PO BID 09/18/12 Information Source: Patient Mode of Arrival: Ambulatory Severity of Laceration: Controlled Bleeding Complexity: Simple Timing: Days (1) Prehospital treatment: None Laceration Location: Digit #3 Mechanism: Other (ROOSTER ) Laceration Length (cm): 3 Skin Type: Irregular Depth of Injury: SQ Capillary Refill: < 3 seconds Tender: Mild Discharge: None Erythema: None Associated Signs and Symptoms: None Past Medical History PAST MEDICAL HISTORY: Asthma, High Lipids, HTN Surgical History: Denies all surgeries Family History Family History: Reviewed,noncontributory to illness, No family hx of Cancer, No family hx of DM, No family hx of Heart carmen, No family hx of HTN, No family hx ofKidney carmen, No family hx of Liver carmen, No family hx of Lung carmen, No family hx of Stroke Social History Smoker: Cigarettes Alcohol: Denies ETOH Use Drugs: Denies Drug Use Lives In: Home Constitutional: denies: chills, diaphoresis, fatigue, fever, malaise, sweats, weakness, others EENTM: denies: blurred vision, double vision, ear bleeding, ear discharge, ear drainage, ear pain, ear ringing, eye pain, eye redness, hearing loss, mouth pain, mouth swelling, nasal discharge, nose bleeding, nose congestion, nose pain, photophobia, tearing, throat pain, throat swelling, voice changes, others Respiratory: denies: cough, hemoptysis, orthopnea, SOB at rest, shortness of breath, SOB with excertion, stridor, wheezing, others Cardiovascular: denies: chest pain, dizzy spells, diaphoresis, Dyspnea on exertion, edema, irregular heart beat, left arm pain, lightheadedness, palpitations, PND, syncope, others Gastrointestinal: denies: abdomen distended, abdominal pain, blood streaked bowels, constipated, diarrhea, dysphagia, difficulty swallowing, hematemesis, melena, nausea, poor appetite, poor fluid intake, rectal bleeding, rectal pain, vomiting, others Genitourinary: denies: burning, dysuria, flank pain, frequency, hematuria, incontinence, penile discharge, penile sore, pain, testicle pain, testicle swelling, urgency, others Neurological: denies: dizziness, fainting, headache, left sided numbness, left sided weakness, numbness, paresthesia, pre-existing deficit, right sided numbness, right sided weakness, seizure, speech problems, tingling, tremors, weakness, others Musculoskeletal: denies: back pain, gout, joint pain, joint swelling, muscle pain, muscle stiffness, neck pain, others Integumetry: reports: laceration (LEFT 3RD FINGER ); denies: bruises, change in color, change in hair/nails, dryness, lesions, lumps, rash, wounds, others Allergic/Immunocompromised: denies: Difficulty Healing, Frequent Infections, Hives, Itching, others Hematologic/Lymphatic: denies: anemia, blood clots, easy bleeding, easy bruising, swollen glands, others Endocrine: denies: excessive hunger, excessive sweating, excessive thirst, excessive urination, flushing, intolerance to cold, intolerance to heat, unexplained weight gain, unexplained weight loss, others Psychiatric: denies: anxiety, bipolar disorder, depression, hopeless, panic disorder, schizophrenia, sleepless, suicidal, others All Other Systems: Reviewed and Negative Physical Exam General Appearance: No Apparent Distress, Normal HEENT: Normal ENT Inspection, PERRL/EOMI, Pharynx Normal, TMs Normal Neck: Full Range of Motion, Non-Tender, Normal, Normal Inspection Respiratory: Chest Non-Tender, Lungs Clear, No Accessory Muscle Use, No Respiratory Distress, Normal Breath Sounds Cardiovascular: No Edema, No JVD, No Murmur, No Gallop, Normal Peripheral Pulses, Regular Rate/Rhythm Breast Exam: Deferred Gastrointestinal: No Organomegaly, Non Tender, No Pulsatile Mass, Normal Bowel Sounds, Soft Genitalia: Deferred Pelvic: Deferred Rectal: Deferred Extremities: No calf tenderness, Normal capillary refill, Normal range of motion, No pedal edema, Tender (WITH LACERATION ON LEFT INDEX FINGER, NO BONY TENDERNESS AND SWELLING. ) Musculoskeletal : Apperance: Normal Neurologic: Alert, seat joiner chainstitch II-XII nml as Tested, No Motor Deficits, Normal Affect, Normal Mood, No Sensory Deficits Cerebellar Function: Normal Reflexes: Normal Skin: Dry, Lacerations (3CM IRREGULAR LACERATION ON LEFT 3RD DORSAL FINGER, NO BLEEDING AND FB, NEUROVASCUL;AR INTACT, NORMAL ROM. ), Normal Color, Warm Peripheral Pulses: 2+ carotid (R), 2+ carotid (L), 2+ Radial (R), 2+ Radial (L) Lymphatic: No Adenopathy Was a procedure done? Was a procedure done?: Yes Sedation Sedation?: No Laceration Repair : Location LEFT THIRD FINGER Length 3 Anesthetic: Lidocaine Laceration Repair Prep: Saline, by Irrigation Laceration Repair Wound Comple: epidermis/dermis repair Laceration Repair: Number of sutures (7), SQ, Size (4-0), Nylon, Simple, Bacitracin, Gauze Informed consent obtained: Yes Risks, benefits, and alternati: Yes Notes THE 3CM LACERATION TO THE LEFT THIRD DIGIT WAS REPAIRED WITH 7 SUTURES OF 4-0 ETHILON. REPAIR INVOLVED LAYERED CLOSURE OF DEEPER TISSUES AND THE EPIDERMIS, WITHOUT VISIBLE INJURY TO BONE OR TENDON Images 1 - 2 - Differential diagnosis Generic Laceration: Abrasion/Contusion, Laceration, Avulsion X-Ray, Labs, Meds, VS Vital Signs Date Time Temp Pulse Resp B/P (MAP) Pulse Ox O2 Delivery O2 Flow Rate FiO2 07/22/25 09:12 97.6 65 18 128/100 94 97.6 Current Medications Medications (Trade) Dose Ordered Sig/Elliott Route Start Time Stop Time Status Last Admin Diphtheria/ Tetanus/Acell Pertussis (Boostrix T-Dap) 0.5 ml ONCE ONCE IM 07/22/25 09:45 07/22/25 09:46 DC 07/22/25 09:45 X-Ray, Labs, Meds, VS Comment EXTERNAL MEDICAL RECORDS REVIEWED: [NONE] INDEPENDENT HISTORIANS: [NONE] SOCIAL DETERMINANTS OF HEALTH: [NONE] LABS ORDERED: NONE REVIEWED AND INTERPRETED RESULTS: NONE IMAGING ORDERED: NONE TREATMENTS ORDERED: TD0.5 ML IM PROCEDURES PERFORMED:THE 3CM LACERATION TO THE LEFT THIRD DIGIT WAS REPAIRED WITH 7 SUTURES OF 4-0 ETHILON. REPAIR INVOLVED LAYERED CLOSURE OF DEEPER TISSUES AND THE EPIDERMIS, WITHOUT VISIBLE INJURY TO BONE OR TENDON CRITICAL CARE TIME: NONE I HAVE DISCUSSED THE PATIENT WITH THE ATTENDING PHYSICIAN, DR. MARTINS, HE AGREES WITH THE PATIENT'S PLAN OF CARE AND DISPOSITION. BASED ON HISTORY OF PRESENT ILLNESS, AND PHYSICAL EXAM, PATIENT WILL BE DISCHARGED HOME. DISCUSSED PLAN FOR DISCHARGE HOME WITH RX: CLINDAMYCIN 300MG . MEDICATION WARNINGS GIVEN. SHARED DECISION MAKING: DISCUSSED WITH PATIENT TO RETURN TO THE ER OR GO TO PCP FOR SUTURAL REMOVAL IN 10 DAYS. PATIENT INSTRUCTED TO FOLLOW UP WITH PRIMARY CARE PROVIDER IN 1-2 DAYS FOR RE-EVALUATION OF SYMPTOMS. PATIENT VERBALIZES UNDERSTANDING TO RETURN TO ED FOR NEW OR WORSENING SYMPTOMS OR IF FOLLOW UP WITH PCP CANNOT BE OBTAINED. PATIENT FEELS COMFORTABLE GOING HOME AT THIS TIME. ALL QUESTIONS ADDRESSED AT TIME OF DISCHARGE. Time of 1ST Reevaluation: 10:00 Reevaluation 1ST: Improved Patient Education/Counseling: Diagnosis, Treatment, Prognosis Family Education/Counseling: Diagnosis, Treatment, No Family Present Medical Screening: No EMC Exist At This Time Departure 1 Departure Time of Disposition: 10:00 Impression: Primary Impression: Laceration of left middle finger Qualified Codes: S61.213A - Laceration without foreign body of left middle finger without damage to nail, initial encounter Disposition: HOME / SELF CARE / HOMELESS Condition: Stable Additional Instructions: FOLLOW-UP WITH PCP IN 1 TO 2 DAYS. TAKE MEDICATIONS PRESCRIBED. RETURN TO ED FOR ANY NEW OR WORSENING SYMPTOMS. e-Prescriptions Clindamycin Hcl (Clindamycin Hcl) 300 Mg Cap 1 CAP PO TID, #21 CAP Prov: TU TAYLOR 07/22/25 Discharged With: Self Critical Care Note Critical Care Time?: No Stability Stability form required: No I personally scribed for TU TAYLOR ([id number]) on 07/22/25 at 09:37. Electronically submitted by Nakita Kim ([facility]). TU TAYLOR Jul 22, 2025 09:37
[2025-07-22] MEDS ORDERED: AMOX500T86 PO (09:38)
[2025-07-22] MEDS: TETANUS-DIPTH-ACEL PERTUSSIS 0.5ML SYR Tdap IM ONE (09:45)
[2025-07-22] MEDS ORDERED: CLIN1CAP70 PO (09:49)
[2025-07-22 09:56] VITALS: BP 124/85; PULSE 80; RESP 18; TEMP 97.8; O2SAT 98
== END 2025-07-22 10:00 | disposition home or self-care (01) ==
LOC: ER 09:09
DX: S61.213A Laceration without foreign body of left middle finger without damage to nail, initial encounter (principal); J45.909 Unspecified asthma, uncomplicated; I10 Essential (primary) hypertension; F17.210 Nicotine dependence, cigarettes, uncomplicated; E78.5 Hyperlipidemia, unspecified; Z79.899 Other long term (current) drug therapy; Z79.01 Long term (current) use of anticoagulants; Z79.1 Long term (current) use of non-steroidal anti-inflammatories (NSAID); Z88.0 Allergy status to penicillin; Y08.89XA Assault by other specified means, initial encounter; Y93.89 Activity, other specified; Y92.89 Other specified places as the place of occurrence of the external cause; Y99.8 Other external cause status
CPT/HCPCS: 12002; 90471; 90715